=== PATIENT | male | born 1950 | race Caucasian/White ===

== ENCOUNTER 2019-03-09 09:21 | Day surgery (SDC) | payer BC ==
[~2019-03-09 09:21] MED LIST: Lactated Ringers 1,000 ML IV SCH; Sodium Chloride 0.9% 10 ML Syringe FLUSH PRN
[2019-03-09] MEDS ORDERED: Midazolam 1 MG/ML 2 ML SDV ONE (10:43)
[2019-03-09] MEDS ORDERED: Propofol 200 MG/20 ML SDV ONE (10:43)
[2019-03-09] MEDS ORDERED: fentaNYL 100 MCG/2 ML SDV ONE (10:43)
--- NOTE | 2019-03-09 12:16 | OR ---
PREOPERATIVE DIAGNOSIS: History of polyps and colitis. POSTOPERATIVE DIAGNOSES: 1. Colonic polyps x2 removed. 2. Diffuse mild colitis. PROCEDURE PROPOSED: Total flexible colonoscopy. PROCEDURE DONE: Total flexible colonoscopy with hot snare polypectomy x2 and multiple random biopsies. INDICATION: This is a 68-year-old gentleman with a history of polyps and a history of some type of colitis in the past. He does vacillate between diarrhea and constipation. As far as his stool pattern, it is felt he should be colonoscoped for further evaluation with some biopsies and to rule out any recurrent polyps. TECHNIQUE: The patient was brought to the endoscopy suite, placed in left lateral decubitus position. He was sedated per STAFF ATTORNEY with propofol. The flexible video colonoscope was then passed transanally and under visualization advanced to the cecum. In the cecal area, he was found to have an adenomatous polyp removed by hot snare technique and retrieved with suction. I then started doing random biopsies throughout the cecal, ascending, transverse, descending, sigmoid, and rectal colon. He was noted to have visible colitis, mild, mainly in the right colon, but it was noted also in the descending colon as well. I then found a second polyp at 20 cm from the anal verge, again removed by hot snare technique and retrieved with suction and the remainder of the rectosigmoid was normal. The scope was then withdrawn. The patient tolerated the procedure well. FINAL IMPRESSION: 1. Diffuse colitis, biopsies pending. 2. Colonic polyps x2 removed. PLAN: He will be sent a letter with pathology report. I felt that he should follow up with Dr. Arelis Brody next week for pathology report and recheck and see if there is anything further needs to be done and he should have a 5 year followup exam of his colon to make sure he has not formed any new polyps. SCM: 03/09/2019 11:50:25 MODL: 03/09/2019 12:08:12 /[id number]
== END 2019-03-09 12:35 | disposition home or self-care (01) ==
LOC: VM.SDS 09:21
PROVIDERS: ATTEND Surgery
DX: R19.4 Change in bowel habit (principal); D12.0 Benign neoplasm of cecum; D12.5 Benign neoplasm of sigmoid colon; K52.9 Noninfective gastroenteritis and colitis, unspecified; Z86.010 Personal history of colon polyps; I10 Essential (primary) hypertension; E78.00 Pure hypercholesterolemia, unspecified; I73.9 Peripheral vascular disease, unspecified; I71.4 Abdominal aortic aneurysm, without rupture; F17.210 Nicotine dependence, cigarettes, uncomplicated; Z87.19 Personal history of other diseases of the digestive system; Z79.82 Long term (current) use of aspirin; Z79.899 Other long term (current) drug therapy
CPT/HCPCS: 45385; J2250; J2704; J3010; J7120

== ENCOUNTER 2021-01-30 10:56 | Emergency (ER) | payer OTHER ==
[2021-01-30] MEDS ORDERED: Heparin Sodium 5,000 Units/ML Vial ONE (11:05)
[2021-01-30] MEDS ORDERED: Ticagrelor 90 MG Tab PO ONE (11:05)
[2021-01-30] MEDS ORDERED: Morphine 2 MG/ML SYRINGE ONE (11:05)
[2021-01-30] MEDS ORDERED: Nitroglycerin 0.4 MG Tab.SL ONE (11:05)
[2021-01-30] MEDS ORDERED: Aspirin 81 MG Tab.Chew ONE (11:05)
[2021-01-30] MEDS ORDERED: Morphine 2 MG/ML SYRINGE IVPUSH ONE (11:05)
[2021-01-30] MEDS ORDERED: Nitroglycerin/D5W (0.1 MG/ML) 25 MG/250 ML Bottle ONE (11:05)
--- NOTE | 2021-01-30 11:10 | EDM.PDOC ---
ED HPI GENERAL MEDICAL PROBLEM - General Stated Complaint: ER Time Seen by Provider: 01/30/21 10:56 Source of Information: Reports: Patient, RN, RN Notes Reviewed History Limitations: Reports: No Limitations - History of Present Illness Onset: Today, Sudden - Related Data Allergies Allergy/AdvReac Type Severity Reaction Status Date / Time No Known Allergies Allergy Verified 03/09/19 09:41 Home Meds: Home Meds Betamethasone Dipropionate [Betamethasone Diprop Augmented] 1 applic TOP BID PRN 03/06/19 [History] amLODIPine Besylate [Amlodipine Besylate] 5 mg PO DAILY 03/06/19 [History] Past Medical History HEENT History: Reports: Hard of Hearing Cardiovascular History: Reports: High Cholesterol, Hypertension Other Cardiovascular History: PERIPHERAL VASCULAR DISEASE. AAA(ABDOMINAL AORTIC ANEURYSM) ([facility]). OCCLUSION OF ILIAC ARTERY Gastrointestinal History: Reports: Colon Polyp Other Gastrointestinal History: ULCERATIVE COLITIS Other Genitourinary History: PROSTATIC HYPERTROPHY. URGENCY OF URINATION Musculoskeletal History: Reports: Back Pain, Chronic, Neck Pain, Chronic Other Musculoskeletal History: HAMMER TOE. TRAUMATIC FINGER AMPUTATION. METATRSALGIA OF LEFT FOOT. CARPEL TUNNEL SYNDROME Other Psychiatric History: PAIN MEDICATION AGREEMENT BROKEN. SMOKER. H/O ALCO HOL ABUSE Other Dermatologic History: PLANTAR WART LEFT FOOT - Past Surgical History Other Cardiovascular Surgeries/Procedures: AORTAL-FEMORAL BYPASS GI Surgical History: Reports: Colonoscopy Other Musculoskeletal Surgeries/Procedures:: BACK SURGERY x 3. NECK SURGERY. LAMINECTOMY ED ROS GENERAL - Review of Systems Review Of Systems: Comprehensive ROS is negative, except as noted in HPI. ED EXAM, GENERAL - Physical Exam Exam: See Below Exam Limited By: No Limitations General Appearance: Alert, WD/WN, Anxious, Moderate Distress Eye Exam: Bilateral Eye: EOMI, Normal Inspection Ears: Normal External Exam, Hearing Grossly Normal Nose: Normal Inspection Throat/Mouth: Normal Inspection, Normal Voice, No Airway Compromise Head: Atraumatic, Normocephalic Neck: Normal Inspection, Supple, Non-Tender, Full Range of Motion Respiratory/Chest: No Respiratory Distress, Lungs Clear, Normal Breath Sounds, No Accessory Muscle Use, Chest Non-Tender Cardiovascular: Normal Peripheral Pulses, Regular Rate, Rhythm, No Edema, No Gallop, No JVD, No Murmur, No Rub Peripheral Pulses: 2+: Radial (L), Radial (R) GI/Abdominal: Normal Bowel Sounds, Soft, Non-Tender (Male) Exam: Deferred Rectal (Males) Exam: Deferred Back Exam: Normal Inspection, Full Range of Motion, NT Extremities: Normal Inspection, Normal Range of Motion, Non-Tender, Normal Capillary Refill, No Pedal Edema Neurological: Alert, Oriented, CN II-XII Intact, Normal Cognition, Normal Gait, Normal Reflexes, No Motor/Sensory Deficits Psychiatric: Normal Affect, Normal Mood, Anxious Skin Exam: Warm, Dry, Intact, Normal Color, No Rash Lymphatic: No Adenopathy #1 Interpretation EKG Date: 01/30/21 Time: 10:54 Rhythm: NSR Rate (Beats/Min): 87 P-Wave: Present QRS: Wide ST-T: Elevated QT: Normal Course - Orders/Labs/Meds Orders: Active Orders 24 hr Category Date Time Status EKG Documentation Completion [RC] STAT Care 01/30/21 11:05 Active Chest 1V Frontal [CR] Stat Exams 01/30/21 11:05 Ordered Labs: Laboratory Tests 01/30/21 01/30/21 01/30/21 Range/Units 11:00 11:00 11:00 WBC 10.3 H (4.0-10.0) x10^3/uL RBC 5.39 (4.5-6.0) x10^6/uL Hgb 17.5 (14.0-18.0) g/dL Hct 51.5 (40.0-52.0) % MCV 95.5 H (78.0-93.0) fL MCH 32.5 H (26.0-32.0) pg MCHC 34.0 (32.0-36.0) g/dL RDW Coeff of Danielle 13.7 (10.0-15.0) % Plt Count 188 (130-400) x10^3/uL Neut % (Auto) 56.9 (50.0-80.0) % Lymph % (Auto) 32.9 (25.0-50.0) % Mower % (Auto) 8.8 (2.0-11.0) % Eos % (Auto) 1.2 (0.0-4.0) % Baso % (Auto) 0.2 (0.2-1.2) % PT 10.4 (9.9-12.5) SEC INR 0.9 L (2.0-3.5) APTT 26.1 (25.6-32.8) SEC D-Dimer, Quantitative 3.35 H (<=0.58) mg/LFEU Sodium 139 (136-145) mmol/L Potassium 4.1 (3.5-5.1) mmol/L Chloride 101 (98-107) mmol/L Carbon Dioxide 26 (21-32) mmol/L Anion Gap 16.1 H (5-15) mmol/L BUN 23 H (7-18) mg/dL Creatinine 1.5 H (0.70-1.30) mg/dL Est Cr Clr Drug Dosing TNP Estimated GFR (MDRD) 46 Glucose 143 H (70-99) mg/dL Calcium 9.3 (8.5-10.1) mg/dL Corrected Calcium 9.46 (8.5-10.1) mg/dL Magnesium 2.0 (1.8-2.4) mg/dL Total Bilirubin 0.7 (0.2-1.0) mg/dL AST 84 H (15-37) U/L ALT 46 (16-63) U/L Alkaline Phosphatase 97 (46-116) U/L Creatine Kinase 262 (39-308) U/L Troponin I High Sens 2375 H* (<=76) ng/L Total Protein 8.2 (6.4-8.2) g/dL Albumin 3.8 (3.4-5.0) g/dL Globulin 4.4 Albumin/Globulin Ratio 0.86 Meds: Medications Discontinued Medications Generic Name Dose Route Start Last Admin Trade Name Freq PRN Reason Stop Dose Admin Morphine Sulfate 2 mg 01/30/21 11:05 Morphine 2 Mg/Ml Syringe IVPUSH 01/30/21 11:06 ONETIME ONE - Re-Assessments/Exams Free Text/Narrative Re-Assessment/Exam: 01/30/21 12:07 Discuss[address] patient case with Dr. Manuel, Cardiology at [facility] in [place]. He accepted the patient for transfer to [place], and the patient will go directly to [facility]. Departure - Departure Time of Disposition: 11:15 Disposition: DC/Tfer to Acute Hospital 02 Reason for Transfer *Q: Other Condition: Fair Clinical Impression: STEMI (ST elevation myocardial infarction) Qualifiers: Involved coronary artery: unspecified coronary artery Qualified Code(s): I21.3 - ST elevation (STEMI) myocardial infarction of unspecified site Referrals: Arelis Brody MD [Primary Care Provider] - Forms: Interfacility Transfer EMTALA - My Orders Last 24 Hours: My Active Orders 01/30/21 11:05 EKG Documentation Completion [RC] STAT Chest 1V Frontal [CR] Stat - Assessment/Plan Last 24 Hours: My Active Orders 01/30/21 11:05 EKG Documentation Completion [RC] STAT Chest 1V Frontal [CR] Stat
[2021-01-30 11:33] LABS: PTT,PARTIAL THROMBOPLSTIN TIME 26.1 SEC (25.6-32.8)
[2021-01-30 11:45] LABS: ANION GAP 16.1 mmol/L (5-15); CHLORIDE,CL 101 mmol/L (98-107); SODIUM,NA 139 mmol/L (136-145)
--- OUTSIDE RECORDS SUMMARY | 2021-02-03 07:52 | XMSREPORT ---
:1950 Author Organization [facility] s Address [address] [place] [address] Care Team Providers Name Role Phone MD Ronn Primary Care Provider MD Ronn Attributed Provider Reason for Referral Comprehensive Primary Care Plus (Routine) Status Reason Specialty Diagnoses / Referred By Referred To Procedures Contact Contact New Request CARDIOLOGY Diagnoses Stented coronary artery ST elevation myocardial infarction involving left anterior descending (LAD) coronary artery ([facility]) Coy Hartman o Cardiology Sc A, [employer] [address] [place] [address] [phone] Phone: Fax: Reason for Visit Auth/Cert Status Reason Specialty Diagnoses / Procedures Referred By C ontact Referred To Contact Encounter Details Date Type Department Care Team Description 01/30/2021 - Hospital Encounter [facility] ST elevation [place] 02/02/2021 CENTER 6CArlene Grimm MD (STEMI) ([facility]) [id number] [place] [address] [place] [address] [phone] Allergies No Known Allergiesdocumented as of this encounter (statuses as of 02/02/2021) Medications Medication Sig Dispensed Refills Start End Date Status Date PROAIR HFA 108 INHALE 1-2 PUFFS 8.5 g 2 Active (90 Base) MCG/ACT ORALLY EVERY 4 9 inhalerIndication HOURS NEEDED s: Cough, Lower FOR SHORTNESS OF respiratory BREATH OR infection (e.g., WHEEZING SHAKE bronchitis, WELL BEFORE pneumonia, USING. pneumonitis, pulmonitis) loratadine Take 10 mg by 0 Activ e (CLARITIN) 10 mg mouth 1 time per tablet day selenium 200 MCG Take 200 mcg by 0 Active CAPS mouth 1 time per day fluticasone-umecl Inhale 1 puff 2 each 4 Active idinium-vilantero orally 1 time 1 l (TRELEGY per day ELLIPTA) 100-62.5-25 mcg/Inh inhalerIndication s: Restrictive lung disease vitamin D3, Take 50 mcg by 0 Act ranjana cholecalciferol, mouth 1 time per 50 mcg (1999 day unit) tablet omega-3 fatty Take 1,000 mg by 0 Active acids (FISH OIL) mouth 1 time per 1000 mg capsule day aspirin (ECOTRIN Take 1 tablet 30 tablet 0 Active LOW STRENGTH) 81 (81 mg) by mouth 1 MG enteric coated 1 time per day tabletIndications : ST elevation myocardial infarction involving left anterior descending (LAD) coronary artery (HCC) nitroglycerin Dissolve 1 25 tablet 1 02/08/20 Activ e (NITROSTAT) 0.4 tablet (0.4 mg) 1 22 mg sublingual under the tongue tabletIndications every 5 minutes : ST elevation as needed for myocardial chest pain. January infarction repeat every 5 involving left minutes for a anterior total of 3 descending (LAD) doses. coronary artery (HCC) amiodarone Take 1 tablet 90 tablet 4 02/21/20 Activ e (CORDARONE, (200 mg) by 1 22 PACERONE) 200 mg mouth 1 time per tabletIndications day <start : ST elevation taking on January myocardial > infarction involving left anterior descending (LAD) coronary artery (HCC) amiodarone Take 1 tablet 12 tablet 0 02/09/20 Activ e (CORDARONE, (400 mg) by 1 22 PACERONE) 400 mg mouth 1 time per tabletIndications day thru the : ST elevation 14 of February. myocardial infarction involving left anterior descending (LAD) coronary artery (HCC) rosuvastatin Take 1 tablet 90 tablet 4 02/09/20 Act ranjana (CRESTOR) 40 mg (40 mg) by mouth 1 22 tabletIndications 1 time per day : ST elevation myocardial infarction involving left anterior descending (LAD) coronary artery ([facility]) carVEDilol Take 1 tablet 180 tablet 4 02/08/20 Acti ve (COREG) 6.25 mg (6.25 mg) by 1 22 tabletIndications mouth 2 times a : ST elevation day with meals myocardial infarction involving left anterior descending (LAD) coronary artery ([facility]), Acute systolic CHF (congestive heart failure) ([facility]) clopidogrel Take 1 tablet 90 tablet 3 Acti ve (PLAVIX) 75 mg (75 mg) by mouth 1 tabletIndications 1 time per day : ST elevation myocardial infarction involving left anterior descending (LAD) coronary artery ([facility]) apixaban Take 1 tablet (5 180 tablet 4 02/08/20 Ac tive (ELIQUIS) 5 MG mg) by mouth 2 1 22 tabletIndications times a day. : Atrial Fibrillation aspirin 81 mg Take 81 mg by 30 tablet 0 02/03/20 Di scontinued enteric coated mouth Every 3 9 21 ( Stop Taking at tablet days Discharge) betamethasone APPLY TWICE 50 g 4 01/31/20 Disc ontinued dipropionate DAILY TO 9 (Data e ntry (DIPROLENE) 0.05 AFFECTED SKIN error) % GELIndications: FOR UP TO 2 Seborrheic WEEKS dermatitis losartan 25 mg TAKE 1 TABLET 90 tablet 3 02/03/20 D iscontinued tabletIndications (25 MG) BY MOUTH 0 21 (Stop Taking at : Essential 1 TIME PER DAY Dis charge) hypertension, benign diclofenac Apply 2 g 0 02/03/20 Discontin ued (VOLTAREN) 1 % topically 4 21 (St op Taking at gel times a day as Disch arge) needed for mild pain ibuprofen Take 200-600 mg 0 02/03/20 Disc ontinued (ADVIL;MOTRIN-IB) by mouth every 4 21 (Stop Taking at 200 mg tablet to 6 hours as Di scharge) needed for mild pain apixaban Take 1 tablet (5 180 tablet 4 02/03/20 Di scontinued (ELIQUIS) 5 MG mg) by mouth 2 1 21 (Stop Taking at tabletIndications times a day Discharge) : Atrial Indications: Fibrillation Atrial Fibrillation documented as of this encounter (statuses as of 02/02/2021) Active Problems Problem Noted Date Acute systolic CHF (congestive heart failure) 02/03/20 21 Atrial fibrillation with tachycardic ventricular rate 02/02/2021 ST elevation [place] (STEMI) 01/30/2021 STEMI (ST elevation myocardial infarction) 01/30/2021 Bilateral arm pain 01/12/2021 Obesity with body mass index of 30.0-39.9 12/22/2020 H/O aorto-femoral bypass 01/29/2020 Neurogenic claudication 01/29/2020 Last Assessment & Plan: Dr. Whitaker discussed with the patient t hat his symptoms of lower extremities are likely related to his significant degene rative spine disease and significant hardware from previous surgeries in lower back. Dutsin andino has recommended that the patient be re-evaluated in neurosurgery for any pot ential interventions that may improve his symptoms. The patient agrees. His last n eurosurgery visit was in 2011 at [facility], 3 months post op after most recent discect mila and lumbar fusion. He would like to be seen in neurosurgery at [facility] and we w ill make this referral for him. Essential hypertension 05/05/2018 Occlusion of iliac artery 03/09/2015 Overview: See peripheral artery disease AAA (abdominal aortic aneurysm) 03/04/2015 Overview: Aorta US 03/03/15 about 3 cm infrarenal AAA, asymptomatic. CT scan 04/05/16 maximal diameter 3.[address] scan 05/03/2017 maximal diameter 3.[address] scan 05/11/19 shows slight interval in crease in size up to 3.7 cm maximal diameter, previously 3.4 cm, with slight increase in mural thrombus. 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 Last Assessment & Plan: Last CT scan done in April 2019. Recheck in 2 years in 2020. Pain medication agreement broken 03/26/2013 Overview: Overview: VIOLATED PAIN CONTRACT 03/14/13. Status post laminectomy 07/16/2012 Chronic cervical pain 05/29/2012 Carpal tunnel syndrome 10/27/2009 Pure hypercholesterolemia 06/24/2009 Chronic back pain Overview: Lumbar laminectomy '72, 09/09, 09/06, poor result, disabled (see 07/29/13 scan p 4, 92 of 118) Cervical laminectomy, fusion for R ce rvical radiculopathy (see 07/29/13 scan p 14/118) Certified disabled by Soc Sec since 1 On opioids p.r.n., does not take ever y day Smoker Overview: Says he finally quit 08/12; no Dx of lung disease, needs spirometry; restarted 2/3 ppd Quit 03/14 after bypass surgery R leg; see also AAA 04/13 BPA note that he qualifies for low-dose lung CT for cancer screening annually until age 72, talk to him about it at his exam 04/14 Resumed smoking although states not a s much (07/2015) Last Assessment & Plan: Again discussed importance of smoking cessation today, he is going to try to cut back starting tomorrow. He refuses any treatment options to help with cessation. Prostatic hypertrophy Overview: 09/11 1+ on MAMI; urgency, frequency but bladder scan normal, 10 mL PSA 09/11 pending Plantar wart, left foot Overview: L 3rd metatarsal head 09/11, see also metatarsalgia Peripheral vascular disease with claudication Overview: 09/11 R leg especially, poor pp, Hx low JORGE ALBERTO at , can't remember value; no skin lesions. See former smoker 02/11 pain at rest in R leg 03/14 Aorta to right common femoral ar kwaku bypass with 8 mm Fontana-Miguel graft, Dr. Guaman; good result 03/14 preop Lexiscan cardiolite showed no perfusion defects, but postop had atrial fib, Rx metoprolol 4 weeks. Last Assessment & Plan: The patient was also seen today by Dr. Whitaker. We reviewed results of JORGE ALBERTO testing, advising patient that they remain stable, unchanged from previous study 4 months ago. They are normal on right side an d with significant decompensation on lef t side, consistent with known chronic left SFA / popliteal occlusion. Patient is unable to walk long distances without stopping to rest due to bilateral leg numb ness which onsets at 2 blocks, or sooner on an incline. He is advised that he has probably developed adequate collateral circulation to avoid claudication due to his blood vessels. No vascular interven tion is likely to be beneficial and not recommended, given bilateral symptoms which are more consistent with neurogenic claudication. He is encouraged to continue walking as he is able and to contact us if symptoms change. Otherwise we will s ee back to recheck ABIs in about 9 months. Patient communicated understanding of pl an and education received. H/O ulcerative colitis Overview: Flex Sig, Tiffany, Bx's consistent with ulcerative colitis or at least proctitis, Rx Rowasa, azulfadine Referred self to [facility], they di d colonoscopy, Rx something; no problem since Adenomatous colon polyp Overview: 06/11 Colonoscopy: serrated adenoma; n ext in 5 yr, 06/16 Aureliano Overview: 09/11 Most of his toes, but don't seem to bother him See also peripheral vascular disease H/O alcohol abuse Overview: Essentially quit drinking approx 11/07 Finger amputation, traumatic Overview: 04/06 L index finger, in work injury, at mid-proximal phalanx Metatarsalgia of left foot Overview: Says 09/11 has tried metatarsal pads before, didn't help; podiatry referral Urgency of urination Overview: See also prostatic hypertrophy Frequency worse in a.m.'s 09/11 Declines any Rx for it Hx of laminectomy Overview: Lumbar laminectomy , 09/06, 09/09 Cervical laminectomy 11/07 See chronic back pain Wears partial dentures Overview: Hx traumatic loss of upper front teet h, wears partial denture Hearing loss Overview: Mild; no cerumen 03/14 documented as of this encounter (statuses as of 02/02/2021) Immunizations Name Administration Dates Next Due FLU VACCINE HIGH DOSE 65YR+(Fluzone) 07/03/2019, 07/03/2019 Pneumococcal Conj PCV13 07/31/2019 Pneumococcal Polysaccharide PPSV23 03/15/2014 Zoster Live(Zostavax) 03/15/2014 documented as of this encounter Social History Tobacco Use Types Packs/Day Years Used Date Current Every Day Smoker Cigarettes 0.5 60 Sta rted: 07/17/1960 Smokeless Tobacco: Never Used Comments: smokes less than 0.5 per pack per day Alcohol Use Drinks/Week oz/Week Comments No Transportation Needs Answer Date Recorded In the past 12 months, has lack of transportation kept you f rom No 02/01/2021 medical appointments or from getting medications? In the past 12 months, has lack of transportation kept you f rom No 02/01/2021 meetings, work, or getting things needed for daily living? Sexually Active Control Partners Comments Yes Female Sex Assigned at Date Recorded Not on file documented as of this encounter Last Filed Vital Signs Vital Sign Reading Time Taken Comments Blood Pressure 106/74 02/02/2021 12:04 PM CDT Pulse 65 02/02/2021 12:04 PM CDT Temperature 36.7 C (98 F) 02/02/2021 12:04 PM CDT Respiratory Rate 16 02/02/2021 12:04 PM CDT Oxygen Saturation 93% 02/02/2021 12:04 PM CDT Inhaled Oxygen Concentration - - Weight 98.4 kg (216 lb 14.9 oz) 02/01/2021 7:00 PM CDT Height 172.7 cm (5' 8") 02/01/2021 7:00 PM CDT Body Mass Index 32.98 02/01/2021 7:00 PM CDT documented in this encounter Functional Status Functional Status Response Date of Assessment Is the person deaf or does he/she have serious difficulty No 03/08/2015 hearing? Is this person blind or does he/she have difficulty No 03/08/2015 seeing even when wearing glasses? Do you have difficulty with walking, balance, climbing Yes 06/08/2020 stairs, or had a fall in the last 3 months? Does the patient have difficulty dressing or bathing? No 03/08/2015 Because of a physical, mental, or emotional condition; No 03/08/2015 does this person have difficulty doing errands alone such as visiting a doctor's office or shopping? Cognitive Status Response Date of Assessment Because of a physical, mental, or emotional condition; No 03/08/2015 does this person have serious difficulty concentrating, remembering, or making decisions? documented as of this encounter Discharge Summaries Not on filedocumented in this encounter Discharge Instructions Coy Lopez CNP - 1Radial Cardiac Cath/Angioplasty Discharge Instructions ? Do not subject your hand/or arm to any forceful movements for 24 hours. This would include thingslike supporting your weight when rising from a chair or bed. ? For two days following discharge: o Do not operate a motor vehicle, tractor, lawnmower, motorcycle or all terrain vehicles. o Do not life anything heavier than one pound with affected arm. o Avoid a lot of wrist movement (extension/flexion). ? Avoid lifting heavy items with your affected arm for three days after your discharge. ? Do not take part in brisk exercise (i.e. Tennis) using your affected arm for five days after your discharge. ? If bleeding should occur while in the hospital, apply firm pressure to the site and call your nurse. ? If bleeding should occur after your discharge: o Sit down and apply firm pressure to site with your fingers for 10 minutes. o If the bleeding stops, continue to sit quietly, keeping your wrist straight for two hours. Call your doctor as soon as possible o If bleeding does not stop after 10 minutes or if there is a large amount of bleeding or spurting, call 911 right away. [address] not drive yourself to the hospital. ? Remove band-aid 24 hours following application. ? You may shower on the day following your procedure. Do not take a tub bath for three days after your discharge. ? Expect mild tingling of hand and tenderness at the puncture site for up to three days. If this persists or other symptoms develop, please call your nurse or doctor. AttachmentsThe following attachments cannot be sent through Care Everywhere. Heart Failure- After Your Hospital Stay ([place])Heart Attack, Discharge Instructions for ([place])Atrial Fibrillation, Discharge Instructions for ([place])Eliquis Oral Tablet 5 mg ([place])Plavix Oral Tablet 75 mg ([place]) Nitroglycerin SL Oral Tablet 0.4 mg ([place])documented in this encounter Medications at Time of Discharge Medication Sig Dispensed Refills Start Date End Date aspirin (ECOTRIN LOW Take 1 tablet (81 30 tablet 0 02/04/20 21 STRENGTH) 81 MG enteric mg) by mouth 1 time coated per day tabletIndications: ST elevation myocardial infarction involving left anterior descending (LAD) coronary artery (HCC) nitroglycerin Dissolve 1 tablet 25 tablet 1 02/02/202101/28 (NITROSTAT) 0.4 mg (0.4 mg) under the sublingual tongue every 5 tabletIndications: ST minutes as needed elevation myocardial for chest pain. May infarction involving repeat every 5 left anterior descending minutes for a total (LAD) coronary artery of 3 doses. (HCC) amiodarone (CORDARONE, Take 1 tablet (200 90 tablet 4 02/1502/20/2022 PACERONE) 200 mg mg) by mouth 1 time tabletIndications: ST per day <start elevation myocardial taking on February 15> infarction involving left anterior descending (LAD) coronary artery ([facility]) amiodarone (CORDARONE, Take 1 tablet (400 12 tablet 0 02/0302/08/2022 PACERONE) 400 mg mg) by mouth 1 time tabletIndications: ST per day thru the elevation myocardial 14 of February. infarction involving left anterior descending (LAD) coronary artery ([facility]) rosuvastatin (CRESTOR) Take 1 tablet (40 90 tablet 4 202002/08/2022 40 mg tabletIndications: mg) by mouth [address] elevation myocardial per day infarction involving left anterior descending (LAD) coronary artery ([facility]) carVEDilol (COREG) 6.25 Take 1 tablet (6.25 180 tablet 4 02/202102/07/2022 mg tabletIndications: ST mg) by mouth 2 times elevation myocardial a day with meals infarction involving left anterior descending (LAD) coronary artery ([facility]), Acute systolic CHF (congestive heart failure) ([facility]) clopidogrel (PLAVIX) 75 Take 1 tablet (75 90 tablet 3 02/03 mg tabletIndications: ST mg) by mouth 1 time elevation myocardial per day infarction involving left anterior descending (LAD) coronary artery ([facility]) vitamin D3, Take 50 mcg by mouth 0 cholecalciferol, 50 mcg 1 time per day (2000 unit) tablet omega-3 fatty acids Take 1,000 mg by 0 (FISH OIL) 1000 mg mouth 1 time per day capsule fluticasone-umeclidinium Inhale 1 puff orally 2 each 4 0 10/21/2020 -vilanterol (TRELEGY 1 time per day ELLIPTA) 100-62.5-25 mcg/Inh inhalerIndications: Restrictive lung disease selenium 200 MCG CAPS Take 200 mcg by 0 mouth 1 time per day loratadine (CLARITIN) 10 Take 10 mg by mouth 0 mg tablet 1 time per day PROAIR HFA 108 (90 Base) INHALE 1-2 PUFFS 8.5 g 2 05/25 MCG/ACT ORALLY EVERY 4 HOURS inhalerIndications: NEEDED FOR Cough, Lower respiratory SHORTNESS OF BREATH infection (e.g., OR WHEEZING SHAKE bronchitis, pneumonia, WELL BEFORE USING. pneumonitis, pulmonitis) apixaban (ELIQUIS) 5 MG Take 1 tablet (5 mg) 180 tablet 4 02/07/2022 tabletIndications: by mouth 2 times a Atrial Fibrillation day. documented as of this encounter Progress Notes Hamlet Erazo, MED STUDENT - 02/01/2021 1:05 PM CDT Hospital Progress Note Jorje Batista is a 70yr old male admitted on 01/30/2021. Assessment / Plan # STEMI s/p PCI with LUKE on 01/30 # Hypertension # Hyperlipidemia # Tobacco Use Disorder # Provoked A-Fib, converted to sinus on amio drip - C 90% proximal LAD s/p PCI with 3.5 x 18 LUKE, post dilated with 4.0 balloon in the proximal segment. He did convert to afib during cath procedure and converted out with Amio drip within a few hours. -History of a single episode of afib in the past, also a provoked episode - ECHO EF 25%, grade 2 diastolic dysfunction, global hypokinesis with sparing of the basal segments,trivial mitral regurgitation, trivial tricuspid regurgitation - Could consider LifeVest due to acute VT with EF decreased to 25% from 55% prior, at this time patient is not interested Converted to A-Fib at 0220 of 02/01 and converted back to sinus at 0950 of 02/01. With this in mind, wewill discontinue the Brilinta and start Plavix with Eliquis for anticoagulation. Also will continuecoreg and oral amiodarone Plan: -Consider losartan tomorrow -Continue Aspirin 81 mg -Continue Coreg 6.25 mg twice daily -Start Plavix 300 mg one time dose today, and 75 mg tomorrow -Continue Crestor 40 mg daily -Discontinue Brilinta -Begin Eliquis 5 mg twice daily -Oral amiodarone 400 mg daily for two weeks, then move to 200 mg daily -Continue tele -Potential discharge tomorrow AM -Follow up with cardiology outpatient on discharge Interval History: He is feeling well, but did convert into A fib overnight at 0220 with rates 110- 130. Amio bolus andgtt were given. He denied noticing any changes that alerted him to being in A fib. He denies chestpain, SOB, leg swelling or palpitations. He does have some cough which he attributes to his past smoking history. He converted to normal sinus at 0950 with rates in the 70-80s. Amiodarone gtt was discontinued and oral amiodarone started. HPI / History / ROS Patient is a 70 year old male with a history of AAA, HTN, aorto-femoral bypass, obesity, PVD, HLD, smoking, who presented from [facility] to back pain and racing heart. He was found to have STEMI and was transferred to [facility]. He was fishing on Saturday and upon returning home had pizza for dinner. Around an hour later, he began having chest pain across the shoulder blades in addition to a racing heart. He felt shaky at this time. These symptoms resolved on their own. Saturday he missed his blood pressure medication. On Saturday, he experienced the pain across the shoulder blades again. At this point he presented to the [facility] and received nitro and ASA. This improved his pain slightly. Further workup revealeda STEMI, at which point he was transferred. At [facility] he was taken to the livestock laborer and found to have 90% proximal LAD and received PCI with 3.5 x 18 LUKE, post dilated with 4.0 balloon in the proximal segment. He was started on Brilinta. During the procedure, he did convert into A Fib. Review of Systems Constitutional: Negative for chills, fatigue and fever. HENT: Negative for ear pain and hearing loss. Eyes: Negative for pain and visual disturbance. Respiratory: Positive for cough. Negative for shortness of breath and wheezing. Cardiovascular: Negative for chest pain, palpitations and leg swelling. Gastrointestinal: Negative for abdominal pain, constipation, diarrhea, nausea and vomiting. Genitourinary: Negative for difficulty urinating, dysuria, frequency and urgency. Musculoskeletal: Negative for arthralgias and myalgias. Skin: Negative. Neurological: Negative for dizziness, syncope, light-headedness and headaches. Hematological: Does not bruise/bleed easily. Psychiatric/Behavioral: Negative. Physical / Results Current Vital Signs Temp: 97.8 F (36.6 C) BP: 86/65 Weight: 98.4 kg (216 lb 14.9 oz) SpO2: 96 % Resp: 16 Pulse: 61 O2 Device: Room Air O2 Flow Rate (L/min): 2 l/min Pain Ratin Physical Exam Constitutional: General: He is not in acute distress. Appearance: Normal appearance. He is not ill-appearing. HENT: Head: Normocephalic. Right Ear: External ear normal. Left Ear: External ear normal. Neck: Musculoskeletal: Normal range of motion. Cardiovascular: Rate and Rhythm: Normal rate and regular rhythm. Pulses: Normal pulses. Heart sounds: Normal heart sounds. No murmur. Pulmonary: Effort: Pulmonary effort is normal. No respiratory distress. Breath sounds: Wheezing present. Comments: Expiratory wheezing bilaterally Abdominal: General: Abdomen is flat. Bowel sounds are normal. There is no distension. Palpations: Abdomen is soft. Tenderness: There is no abdominal tenderness. There is no guarding. Skin: General: Skin is warm and dry. Neurological: General: No focal deficit present. Mental Status: He is alert. Psychiatric: Mood and Affect: Mood normal. Behavior: Behavior normal. WAVEFORM Atrial flutter with 2:1 A-V conduction Intraventricular conduction delay T wave abnormality, consider inferior ischemia Abnormal ECG Ventricular Rate: 135 BPM Atrial Rate: 270 BPM QRS Duration: 130 ms Q-T Interval: 354 ms QTc Calculation(Bazett): 531 ms Calculated R [place]: 53 degrees Calculated T [place]: 48 degrees Diagnostic Talent Recruiter: ISAURA CERDA MD Medical Equipment Sales: ISAURA CERDA MD Indication: Angina/VT: myocardial infarction with ST elevation (STEMI). Interventional Conclusions: Interventional Summary Proximal left anterior descending: A successful Drug Eluting Stent was deployed using a RESOLUTE DANIELLE [id number]. EXAM: XRAY CHEST PORTABLE INDICATION:wheezing, SOB COMPARISON(S): Chest x-ray from 05/05/2019 FINDINGS/IMPRESSION: The cardiac silhouette is in the upper limits of normal in size. There is pulmonary vascular congestion as well as interstitial and hazy groundglass opacities in the lungs concerning for pulmonary edema. Diffuse infectious process can appear similar. No lobar consolidation identified. No effusion or pn eumothorax. Finalized by: Agustin Olivas MD on 01/31/2021 8:18 AM CDT Editor Continuity And Script: BILLIE LONGO RDCS Reading Physician: PALLAVI VERA MD Ordering Physician: COY HARTMAN CNP Procedure Indication(s): Post STEMI Examination: TTE Complete 2D(m-mode), Complete Spectral Doppler, Color Doppler Conclusions Left Ventricle: Markedly reduced left ventricular systolic function. The ejection fraction is visually estimated to be 25 %. Grade 2 left ventricular diastolic dysfunction. A false tendon is present. Right Ventricle: Normal right ventricular systolic function. IVC: Dilated IVC with normal respirophasic changes. Pericardium: No significant pericardial effusion. No functionally significant valvular abnormalities. Comparison Study Comparison Date: 03/14/2015 Comparison Study: Transthoracic Echocardiogram New RWMA's noted on today's exam, LV overall function has decreased from 55% [place] Erazo, MS3 February 01lectronically signed by Marko Brantley MD at 02/02/2021 8:01 AM CDT Associated attestation - Marko Brantley MD - 02/02/2021 8:01 AM CDT I discussed the patient with the medical student and was present while the history of present illness was obtained. I personally performed the physical exam and medical decision-making components of the visit and have reviewed and verify the student's documentationCoy Hartman CNP - 01/31/2021 11:10 AM CDT Cardiology Progress Note Patient Name: Jorje Batista Admit Date: 01/30/2021 CSN: [id number] Assessment and Plan Active Problems: ST elevation VT (STEMI) (HCC) STEMI (ST elevation myocardial infarction) (HCC) Resolved Problems: * No resolved hospital problems. * Pt was interviewed/examined and the following plan was developed in conjunction with Dr. Brantley Impression/Plan: Jorje is a 70 year old male with a history of AAA, HTN, aorto-femoral bypass, obesity, PVD, HLD, smoking, who presented from [facility] to back pain and racing heart. He was found to have STEMI so was transferred to [facility]. # STEMI # HTN # HLD # Tobacco Use # Provoked Afib, converted to sinus on amio drip - LHC 90% proximal LAD s/p PCI with 3.5 x 18 LUKE, post dilated with 4.0 balloon in the proximal segment. He was started on brilinta. - Patient did convert to afib during cath procedure and converted out with Amio drip within a few hours. He does have a history of a single episode of afib in the past, also a provoked episode. Will hold off on anticoagulation at this time, if he has unprovoked episode we would consider anticoagulation. Currently sinus 70s. - ECHO EF 25%, grade 2 diastolic dysfunction, global hypokinesis with sparing of the basal segments,trivial mitral regurgitation, trivial tricuspid regurgitation - Creatinine bumped from 1.18 to 1.28, will check in AM and restart home losartan if improved - Could consider LifeVest due to acute VT with EF decreased to 25% from 55% prior, jasiel this time patient is not interested - Noted rapid response overnight, patient reports he had something in his throat that he could not clear and was having trouble breathing due to that. Feeling fine this morning. - Encouraged smoking cessation - Transfer to med/surg with telemetry monitoring Cardiac Medications: ASA 81 mg Increase Coreg to 6.25 mg BID Crestor 40 mg Brilinta 90 mg BID Code Status: No Order I appreciate the opportunity to be involved in this patient's care. Cardiology will continue to follow. Coy Hartman, [facility] Cardiology Pager #[phone] [facility], [place] 01/31/2021 Interval History Currently Jorje Batista denies chest, arm, neck, and jaw pain, shortness of breath, palpitations, dizziness, lightheadedness, numbness, and tingling. ROS Pertinent ROS as discussed in the interval history. Current Vital Signs Temp: 97.7 F (36.5 C) BP: 129/91 Pulse: 69 O2 Device: NC - no humidity O2 Flow Rate (L/min): 2 l/min Resp: 19 Pain Ratin (out of 10) Weight: 98.4 kg (216 lb 14.9 oz) SpO2: 96 % Physical Exam Physical Exam Constitutional: He is oriented to person, place, and time. He appears well- developed and well-nourished. No distress. Neck: Normal range of motion. Neck supple. Cardiovascular: Normal rate, regular rhythm, S1 normal, S2 normal and normal heart sounds. Pulses: Radial pulses are 2+ on the right side and 2+ on the left side. Dorsalis pedis pulses are 2+ on the right side and 2+ on the left side. Pulmonary/Chest: Effort normal and breath sounds normal. He has no wheezes. He has no rales. Abdominal: Soft. Musculoskeletal: Normal range of motion. General: No edema. Neurological: He is alert and oriented to person, place, and time. Skin: Skin is warm and dry. Psychiatric: He has a normal mood and affect. His behavior is normal. Judgment and thought content normal. Nursing note and vitals reviewed. Labs I have reviewed all labs, and pertinent positives and negatives are discussed in the Assessment and Plan. Associated attestation - Marko Brantley MD - 01/31/2021 4:55 PM CDT I discussed the patient with the BLAISE and personally interviewed and examined the patient. I verifiedin the medical record all BLAISE documentation/findings, including history, physical exam, and medical decision making, and I agree with the BLAIES's documentation.Pallavi Vera MD - 01/31/2021 4:41 AM CDT Service not to be billed. Nurse notified to me that patient is somewhat tachypneic and restless. I advised the nurse to call rapid response. I called one call LUIS Estrella to transmit stat EKGs. I reviewed the EKGs. I reviewed the echocardiogram done larthu yesterday after patient's admission for STEMI. He had LAD intervention. Significant LV systolic dysfunction at 20%. Post intervention he relapsed into A. fib rapid ventricular rate started on IV amiodarone with the past primary cap coverer team. Rapid response team Dr. Prince called me and reviewed the patient situation. I reviewed the EKGs. To me the EKG center by 1 call both EKGs he was in normal sinus rhythm. Anterior ST elevations no changes. The team told me currently he was a bit wheezy otherwise comfortable requiring only 2 L of oxygen blood pressure well maintained heart rate unde r control. Overall clinical situation does not suggest in-stent thrombosis. Respiratory treatment given. I also advised small dose of IV Lasix therapy. May consider starting low-dose IV nitroglycerin in case of heart failure his left ventricle ejection fraction is significantly low. Dr. Prince will observe and if need be we will start him on IV nitroglycerin. We will see how we progresses. At present we will hold off on acti vation of Dog Track Kennel Manager team Dipika Victor PHARM D - 01/30/2021 9:22 PM CDT 01/30/2021 9:22 PM CDT - Patient was seen by pharmacy med reconciliation team HOME MEDICATIONS have been reconciled and updated to match the patient's home usage based on interview with patient's . Prior to Admission Medications Prescriptions Last Dose Informant Patient Reported? Taking? PROAIR HFA 108 (90 Base) MCG/ACT inhaler No Yes Sig: INHALE 1-2 PUFFS ORALLY EVERY 4 HOURS NEEDED FOR SHORTNESS OF BREATH OR WHEEZING SHAKE WELL BEFORE USING. aspirin 81 mg enteric coated tablet Yes Yes Sig: Take 81 mg by mouth Every 3 days diclofenac (VOLTAREN) 1 % gel Yes Yes Sig: Apply 2 g topically 4 times a day as needed for mild pain tqzqzryiqtz-dzpturkqvrpj-ngdtsftozd (TRELEGY ELLIPTA) 100-62.5-25 mcg/Inh inhaler No Yes Sig: Inhale 1 puff orally 1 time per day ibuprofen (ADVIL;MOTRIN-IB) 200 mg tablet Yes Yes Sig: Take 200-600 mg by mouth every 4 to 6 hours as needed for mild pain loratadine (CLARITIN) 10 mg tablet Yes Yes Sig: Take 10 mg by mouth 1 time per day losartan 25 mg tablet No Yes Sig: TAKE 1 TABLET (25 MG) BY MOUTH 1 TIME PER DAY omega-3 fatty acids (FISH OIL) 1000 mg capsule Yes Yes Sig: Take 1,000 mg by mouth 1 time per day selenium 200 MCG CAPS Yes Yes Sig: Take 200 mcg by mouth 1 time per day vitamin D3, cholecalciferol, 50 mcg (2000 unit) tablet Yes Yes Sig: Take 50 mcg by mouth 1 time per day Facility-Administered Medications: None Dipika Mercado, PHARM Arlene. documented in this encounter H&P Notes Marko Brantley MD - 01/30/2021 2:42 PM CDT Cardiology Inpatient History and Physical Assessment / Plan STEMI - LAD Atrial fibrillation with RVR Dyslipidemia HTN Tobacco smoking Plan: Patient with history of hypertension peripheral vascular disease presented to the hospital with the ST elevation VT, status post emergent coronary angiogram with PCI to the LAD. Currently patient is chest pain-free. He also had new onset atrial fibrillation with rapid ventricular response. We will start the patient on amiodarone drip for rate control. Will start on heparin drip for anticoagulation. Patient was started on aspirin and Brilinta in the Dog Track Kennel Manager. We will switched from Brilinta to Plavix in the morning in view of discharging patient home on triple therapy. (Loaded with Plavix 300 mg first dose followed by 75 mg daily). Continue statin beta-blockers. Counseled about the importance of tobacco smoking cessation. If patient does not convert from atrial fibrillation to sinus rhythm by tomorrow morning we will consider doing MESSI guided cardioversion. Discussed with patient about the whole situation including the possibility of doing MESSI guided cardioversion, patient voiced understanding and agreed to proceed if needed. HPI / History / ROS DIOGENES Recinos is a 70 year old male with a history of AAA, HTN, aorto-femoral bypass, obesity, PVD, HLD, smoking, who presented from [facility] due to chest pain. He notes on Saturday he had gone fishing all day, came home had pizza and then about an hour later noted pain across the shoulder blades as well as racing heart. He felt shaking. This resolved on it's own. Saturday he forget to take his BP medication. Today he felt good initially when he woke up then around 10 AM he was drinking coffee and noted pain across the shoulder blades again. He reported to [facility] where he got nitro and ASA, this eased the pain just a little bit. He was found to have a STEMI. He was transferred to [facility] and brought to livestock laborer where he was found to have 90% proximal LAD s/p PCI with 3.5 x 18 LUKE, post dilated with 4.0 balloon in the proximal segment. He was started on brilinta. During procedure he converted to afib, currently rates varying from 70-140. History Patient Active Problem List Diagnosis Chronic back pain Smoker Prostatic hypertrophy Plantar wart, left foot Peripheral vascular disease with claudication (HCC) H/O ulcerative colitis Adenomatous colon polyp Hammertoe H/O alcohol abuse Finger amputation, traumatic Metatarsalgia of left foot Urgency of urination Hx of laminectomy Wears partial dentures Hearing loss AAA (abdominal aortic aneurysm) (HCC) Occlusion of iliac artery (HCC) Pain medication agreement broken Status post laminectomy Pure hypercholesterolemia Chronic cervical pain Carpal tunnel syndrome Essential hypertension H/O aorto-femoral bypass Neurogenic claudication Obesity with body mass index of 30.0-39.9 Bilateral arm pain Medications Prior to Admission Medication Sig Dispense Refill Last Dose ogyksdssoic-szootpddbcuc-uxjfhtnmgd (TRELEGY ELLIPTA) 100-62.5-25 mcg/Inh inhaler Inhale 1 puff orally 1 time per day 2 each 4 losartan 25 mg tablet TAKE 1 TABLET (25 MG) BY MOUTH 1 TIME PER DAY 90 tablet 3 selenium 200 MCG CAPS Take 200 mcg by mouth 1 time per day betamethasone dipropionate (DIPROLENE) 0.05 % GEL APPLY TWICE DAILY TO AFFECTED SKIN FOR UP TO 2WEEKS (Patient taking differently: as needed Apply twice daily to affected skin for up to 2 weeks) 50 g 4 aspirin 81 mg enteric coated tablet Take 81 mg by mouth One tablet every three days 30 tablet 0 loratadine (CLARITIN) 10 mg tablet Take 10 mg by mouth 1 time per day PROAIR HFA 108 (90 Base) MCG/ACT inhaler INHALE 1-2 PUFFS ORALLY EVERY 4 HOURS NEEDED FOR SHORTNESS OF BREATH OR WHEEZING SHAKE WELL BEFORE USING. 8.5 g 2 No Known Allergies Past Medical History: Diagnosis Date AAA (abdominal aortic aneurysm) (HCC) Chronic back pain Colitis Colon polyp Emphysema lung (HCC) Finger amputation, traumatic H/O aorto-femoral bypass 01/29/2020 Hypertension Laceration of thigh, left, complicated PVD (peripheral vascular disease) with claudication (HCC) Past Surgical History: Procedure Laterality Date AORTAL-FEMORAL BYPASS Right 03/12/2015 Procedure: RIGHT AORTAL FEMORAL BYPASS;; Surgeon: Matteo Guaman DO BACK SURGERY NECK SURGERY Family History Problem Relation Age of Onset Not otherwise listed - Cancer Mother in her leg Alcohol Abuse Father Dysrhythmia Sister Throat Cancer Sister Pulmonary Embolism Sister Not otherwise listed - Cancer Brother pancreatic Pancreatic Cancer Brother No Known Problems Daughter Breast Cancer Sister Skin Cancer (non melanomatous) Brother Ulcerative Colitis Brother No Known Problems Daughter No Known Problems Maternal Grandmother No Known Problems Maternal Grandfather No Known Problems Paternal Grandmother No Known Problems Paternal Grandfather Anesthesia Reaction Neg Hx Social History Socioeconomic History Marital status: Spouse name: Corrie Number of children: 2 Years of education: Not on file Highest education level: Not on file Occupational History Occupation: retired chemical dependency attendant of [employer] Comment: retired in 2006 Tobacco Use Smoking status: Current Every Day Smoker Packs/day: 0.50 Years: 60.00 Pack years: 30.00 Types: Cigarettes Start date: 07/17/1958 Smokeless tobacco: Never Used Tobacco comment: smokes less than 0.5 per pack per day Substance and Sexual Activity Alcohol use: No Drug use: Not Currently Types: Marijuana Comment: occasional marijuana Sexual activity: Yes Partners: Female Social History Narrative , and remarried approx . He worked at [employer] in the , [employer] in ' and , then for [employer] until became disabled. Retired since 2007. Got care at [facility] from to 07/12, then back to [facility]. His daughters live in [place], [place]. Review of Systems Review of Systems Constitutional: Positive for fatigue. Negative for unexpected weight change. HENT: Negative. Eyes: Negative. Respiratory: Positive for shortness of breath. Negative for chest tightness. Cardiovascular: Negative for chest pain, palpitations and leg swelling. Gastrointestinal: Negative. Negative for blood in stool and nausea. Genitourinary: Negative. Musculoskeletal: Negative. Skin: Negative. Neurological: Negative. Psychiatric/Behavioral: Negative. Physical / Results Current Vital Signs Pain Ratin Physical Exam Constitutional: He appears healthy. No distress. HENT: Nose: Nose normal. Mouth/Throat: Oropharynx is clear. Eyes: Pupils are equal, round, and reactive to light. Conjunctivae are normal. Neck: Normal range of motion. Neck supple. No JVD present. Cardiovascular: Normal heart sounds and normal pulses. An irregularly irregular rhythm present. Tachycardia present. No murmur heard. Pulmonary/Chest: Effort normal and breath sounds normal. He has no rales. Abdominal: Soft. Bowel sounds are normal. Musculoskeletal: Normal range of motion. General: No edema. Neurological: He is alert and oriented to person, place, and time. Skin: Skin is warm and dry. Medical Decision Making I have: Independently visualized and interpreted an image, tracing or specimen previously or subsequently interpreted by another provider. Obtained/reviewed old records from [facility] or elsewhere (details outlined elsewhere in note). documented in this encounter Procedure Notes Isaura Cerda MD - 01/30/2021 12:50 PM CDT Immediate Post-Cardiac Catheterization Progress Note Att. Phys: Marko Brantley MD Operative Date: 01/30/2021 Surgeon: Isaura Cerda MD Rn Mental Health: none Pre-Operative Diagnosis: STEMI Post-Operative Diagnosis: CAD Anesthesia Type: See Dog Track Kennel Manager procedure log Operative Procedure: coronary angiogram & PCI to proximal LAD with LUKE Specimens: None Fluids Given: See Dog Track Kennel Manager procedure log Urine Output: See Dog Track Kennel Manager procedure log Estimated Blood Loss: 10 mL Drains: none Findings: 90% proximal LAD s/p PCI with 3.5 x 18 LUKE, post dilated with 4.0 balloon in the proximal segment Please see full report Complications: None Disposition/Physican Comminication: Transfer to the floor 1 Postoperative Condition: Stable The procedure was performed using moderate conscious sedation. The patient was monitored utilizing continuous pulse oximetry, continuous telemetry and intermittent blood pressure measurements throughout the procedures. Please see the patient's procedure log for further information. Moderate sedation physician start time 12:15 Moderate sedation physician stop time 12:46 Isaura Cerda MD Interventional Cardiology [facility] documented in this encounter Miscellaneous Notes Case Mgmt - Rosemary Ghotra LSW - 02/02/2021 11:08 AM CDTCASE MANAGEMENT / SOCIAL SERVICE FINAL TRANSITION PLAN TRANSITION DATE: 02/02 TRANSITION TIME: when ready INTENDED PAYER SOURCE FOR AGENCY: Not Applicable TRANSITION DESTINATION: Home [address] [facility], [place] DOES ACCEPTING FACILITY REQUIRE COVID TESTING BEFORE DISCHARGE: N/A TRANSITION TRANSPORTATION: Family Car TRANSPORTATION PAYMENT: Not applicable TRANSITION CHOICES OFFERED: Cardiac Rehab Home: Family/Friend Support DOES THE PATIENT HAVE A PRIMARY CARE PHYSICIAN? Yes Arelis Brody MD PATIENT / SUBSTITUTE DECISION MAKER GOAL UPON TRANSITION: First Choice: Cardiac Rehab Home: Family/Friend Support PATIENT CHOICE EDUCATION: Not applicable MEDICARE 3 IP MIDNIGHT CRITERIA MET: N/A RESOURCE(S) PROVIDED: nothing needed at this time DOES PATIENT HAVE CLOTHING TO WEAR AT DISCHARGE? Yes ANTICIPATED MODE OF TRANSPORT TO AND FROM FOLLOW UP APPOINTMENTS: Drive self Family Car VERIFIED CORRECT PHARMACY IS ENTERED FOR DISCHARGE: Yes - Pharmacy: [facility] [address] [facility] [phone] (Phone) METHOD OF PRESCRIBING MEDICATIONS: Medications to be E-prescribed to above pharmacy TRANSITION ROUNDING COMPLETED WITH THE FOLLOWING: Band Top Maker COMMENTS / PATIENT AND FAMILY RESPONSE TO PLAN: Patient will return home with family in [place], [place]. Family will provide transportation. Patienthas been referred for OP Cardiac Rehab-[facility]. CURRENT READMISSION RISK SCORE / HANDOFF: Predictive Risk Score Risk of Unplanned Readmission: 6 Handoff given: N/A SIGNED: PENNY Mckeon Grocery Stocker Case Management [facility], [place] P) [phone] Respiratory Therapy - Jennifer Ludwig RRT - 02/02/2021 10:00 AM CDTPt seen resting in chair on RA. SpO2 95%. BS clear and diminished. Pt denies SOB. Pt continues to receive trelegy daily. RT to follow. [facility] - Lorie Perez EP - 02/02/2021 9:32 AM CDTCardiac Rehab Phase 1 Inpatient Note: Diagnosis: STEMI/ stent Physical Activity Completed: Ambulate in vital Distance Ambulated: 264 feet Ambulation Assistance: independent Patient response to Exercise: good Exercise Comments: Steady gait with walking. No complaints. Gaitbelt used with activity Vitals Resting Heart Rate - 76 bpm Exercise Heart Rate - 80 bpm O2 Device - RA Exercise SpO2 - 96% Assessment/Plan: Tolerates activity well. Encouraged patient to ambulate in hallway 3-4 times daily as tolerated with gradual progression. -Progress as tolerated -Patient may self ambulate -Patient referred to outpatient Cardiac Rehab program -Continue to follow until until Discharge -Home activity and exercise teaching completed Recommendation: "Outpatient Cardiac Rehab- [place] Continue Inpatient Cardiac Rehab Plan of Care daily until discharge. Cardiac Rehab [facility] Pager: [phone] linical Team - Lee Sauceda RN - 02/02/2021 3:31 AM [id number] No events overnight VSS on RA AOx4 Up independently Diet - heart healthy Telemetry - NSR PIV L) AC Clinical Team - Shahla Umanzor RN - 02/01/2021 9:32 PM CDTPatient reported brief episode of numbness and tingling, resolved without intervention, Vitals takenand recorded. No CP or SOB. No Neuro changes. are Planning - Shahla Umanzor RN - 02/01/2021 7:29 PM CDT Problem: RISK FOR DECREASED CARDIAC TISSUE PERFUSION Goal: TISSUE PERFUSION: CARDIAC Description: DEFINITION: Adequacy of blood flow through the coronary vasculature to maintain heart function. 1 = Severe deviation from normal range, 2 = Substantial deviation from normal range, 3 = Moderate deviation from normal range, 4 = Mild deviation from normal range, 5 = No deviation from normal range. Outcome: NOC Rating 4 Flowsheets (Taken 02/01/20211926) Initial Score: 4 Patient specific goal for the day: No chest pain and maintain Tele NSR. Patient specific goal for the stay: Return to baseline. Patient Progress: VSS, remains in NSR on telemetry, denies cp or SOB, ambulated X 2 in vital without difficulty, SBA. patien anticipates discharge tomorrow. ase Mgmt - Rosemary Ghotra LSW - 02/01/2021 3:13 PM CDTCASE MANAGEMENT / SOCIAL SERVICE TRANSITION PLAN - PROGRESS NOTE PLAN: Awaiting Medical Doctor Recommendations for Transition Will Continue to Follow for Support and Progression Towards Final Transition Plan BARRIERS TO TRANSITION: Awaiting Collateral Information Medical barriers:medical stability; tele, cardiac rehab DOES ACCEPTING FACILITY REQUIRE COVID TESTING BEFORE DISCHARGE: N/A COMMENTS / PATIENT AND FAMILY RESPONSE TO PLAN: Chart review completed. Goal upon discharge will be to return home with family in [place], [place]. Family will provide transportation. Will continue to follow, await treatment team recommendations and provide discharge options as appropriate. IS PATIENT'S ADMISSION ASSOCIATED WITH TIA, ISCHEMIC, OR HEMORRHAGIC STROKE?: No PATIENT / SUBSTITUTE DECISION MAKER GOAL UPON TRANSITION: First Choice: Cardiac Rehab Home: Family/Friend Support ANTICIPATED NEEDS UPON TRANSITION: Cardiac Rehab Home: Family/Friend Support RESOURCE(S) PROVIDED: nothing needed at this time ANTICIPATED MODE OF TRANSPORT UPON TRANSITION: Family Car ANTICIPATED MODE OF TRANSPORT TO AND FROM FOLLOW UP APPOINTMENTS: Drive self Family Car VERIFIED CORRECT PHARMACY IS ENTERED FOR DISCHARGE: Yes - Pharmacy: [facility] [address] [facility] [facility] [phone] (Phone) TRANSITION ROUNDING COMPLETED WITH THE FOLLOWING: Band Top Maker SIGNED: PENNY Mckeon Grocery Stocker Case Management [facility] [place] P) [phone] linical Team - Delores Roper RN - 02/01/2021 3:05 PM [id number] AOx4. VSS on RA. Denies pain and SOB. Up SBA, steady gait. Pt was afib 110-130s. Converted to NSR at 0950, HR 70-80s. Amiodarone gtt discontinued, oral dose started. Pt reporting intermittent numbness/tingling to bilateral hands and R) thigh, team aware. Clinical Team - Ananya Awad RN - 02/01/2021 2:19 PM CDTInterventional Cardiology nurse visit done with patient. He suffered a STEMI and PCI to the pLAD onMay 3rd. Patient has not had a Talent Recruiter in the past. He has had what he believes are cardiac symptoms for many years. He is willing to come to [place] for a follow up appointment. He would like his to be involved in that discussion. He doesn't recall any of the names of the MDs that have followed w ith him. Reviewed that blog writer can call him once he is discharged and schedule with him and his . Patient discussed his episode that lead to a ELECTRIC LOCOMOTIVE CRANE OPERATOR call, but feels it is that he is a smoker and he has not been able to drink like he normally would so he can't cough the phlegm up. Agrees to taking the medications as they ordered. [facility] - Naida Cast EP - 02/01/2021 1:45 PM CDTCardiac Rehab Phase 1 Inpatient Note: Diagnosis: STEMI/stent Physical Activity Completed: Ambulate in vital Distance Ambulated: 550 feet Ambulation Assistance: independent Patient response to Exercise: good Exercise Comments: Steady gait. Tolerates exercise well. No symptoms of chest pain or shortness of breath. Gaitbelt used with activity Vitals Resting Heart Rate - 70's bpm Exercise Heart Rate - 80's bpm O2 Device - RA Assessment/Plan: Tolerates activity well. Encouraged patient to ambulate in hallway 3-4 times daily as tolerated with gradual progression. -Progress as tolerated -Patient referred to outpatient Cardiac Rehab program -Continue to follow until until Discharge -Home activity and exercise teaching completed Recommendation: "Outpatient Cardiac Rehab Continue Inpatient Cardiac Rehab Plan of Care daily until discharge. Cardiac Rehab Alpha Pager: [phone] Respiratory Therapy - Jennifer Ludwig RRT - 02/01/2021 9:59 AM CDTPt seen resting in bed on RA. SpO2 95%. BS clear and diminished. Pt receiving Trelegy daily. Pt denies SOB. RT to follow. are Planning - Isai Barron RN - 02/01/2021 6:30 AM CDT Problem: RISK FOR DECREASED CARDIAC TISSUE PERFUSION Goal: TISSUE PERFUSION: CARDIAC Description: DEFINITION: Adequacy of blood flow through the coronary vasculature to maintain heart function. 1 = Severe deviation from normal range, 2 = Substantial deviation from normal range, 3 = Moderate deviation from normal range, 4 = Mild deviation from normal range, 5 = No deviation from normal range. Outcome: NOC Rating 4 Flowsheets (Taken 02/01/2021 0700) Initial Score: 3 Target Score: 5 Plan of care reviewed with: Patient Patient specific goal for the day: No chest pain and maintain Tele NSR. Patient specific goal for the stay: Return to baseline. Achieve goal for stay: By discharge Patient Progress: pt vss on RA. pt converted to Afib with hr between 110-130's amiodarone bolus and gtt intitiated. pt denies any chest pain, will continue to monitor Clinical Team - Isai Barron RN - 02/01/2021 2:49 AM CDTPt is alert and oriented x4. Pt vss on RA. Pt is on tele- NSR. Pt denies any pain. Right radial siteis clean and dry. Pt is up SBA. @0220 pt converted to Afib with HR between 110-130, Dr. Cain notified, amiodarone bolus and gtt given, see MAR. Alonzo () updated linical Team - Levi Houston RN - 01/31/2021 6:45 PM CDTShift 0700 - 1900 Received pt from 5th floor circa 1400. Report received from Dinah (6CD charge preparation technician). AO x 4 VSS on RA Tele NSR HR 70s Pt denies pain, dizziness, and N/V. SOB w/ exertion. R) radial site CDI. Open to air. CMS to extremity intact. Passing gas. No BM yet. Will continue to monitor. are Planning - Levi Houston RN - 01/31/2021 6:45 PM CDT Problem: RISK FOR DECREASED CARDIAC TISSUE PERFUSION Goal: TISSUE PERFUSION: CARDIAC Description: DEFINITION: Adequacy of blood flow through the coronary vasculature to maintain heart function. 1 = Severe deviation from normal range, 2 = Substantial deviation from normal range, 3 = Moderate deviation from normal range, 4 = Mild deviation from normal range, 5 = No deviation from normal range. Flowsheets (Taken 01/31/2021 1527) Initial Score: 3 Target Score: 5 Plan of care reviewed with: Patient Patient specific goal for the day: No chest pain and maintain Tele NSR. Patient specific goal for the stay: Return to baseline. Achieve goal for stay: By discharge Patient Progress: Pt VSS on RA. Tele NSR HR 70s. Pt denies chest pain, dizziness, N/V. SOB w/ exertion. R) radial cath site open to air, CDI, and CMS intact to extremity. Will continue to monitor. Clinical Team - Clary Jimenez RN - 01/31/2021 2:37 PM CDTPatient transferred to 6th floor, belongings sent with. All lines assessed. Report given to bedside nurse. No other concerns at this time. Four eyes on skin completed with Zachariah Andino RN. Old scar on abdomen. Pressure points within defined limits. No other skin concerns at this time. ase Mgmt - Lisa Marquez RN - 01/31/2021 1:57 PM CDT CASE MANAGEMENT / SOCIAL SERVICE TRANSITION PLAN - INITIAL ASSESSMENT TRANSITION PLAN: Transfer out of [facility] to the medical unit room 641 Awaiting Medical Doctor Recommendations for Transition Will Continue to Follow for Support and Progression Towards Final Transition Plan Regarding discharge planning, goal discharge to home with family support. Patient anticipates that family will provide transportation to home at discharge. BARRIERS TO TRANSITION: Admission date 01/30/2021 Diagnostic Tests Pending Discharge Needs to be Determined Medical barriers:post procedure 01/30/2021 Operative Procedure: coronary angiogram & PCI Lines peripheral IV Medications list includes aspirin, coreg, crestor, Brilinta COMMENTS / PATIENT AND FAMILY RESPONSE TO PLAN: This social work case manager visited with patient, introduced self and explained social work case manager role. Bedside nurses ready for transition to the 6th floor unit, CM accompanied. Patient has been alert and able to answer questions for the initial case management assessment. Patient has stated that he lives in a house [address] main level. Patient has a walker if equipment was needed, says not dependent on assist devices for ambulation. Patient does drive, or spouse drives to appointments. He has a primary care provider ( chart lists Arelis Brody) Patient verifies information is up to date. Patient anticipates that goal for discharge -home with family support. Patient anticipates that family will provide transportation to home at discharge. He has stated that his preferred pharmacy has been [facility]. ADMISSION DX: stemi PATIENT STATUS: Inpatient RELEASE OF INFORMATION: No SOURCES OF INFORMATION (See demographics for contact information): Medical Record Nurse: Bedside Patient CURRENT LIVING SITUATION / LEVEL OF ASSISTANCE: Address listed [address] [place] [address] [place] [address] Family contact Corrie Batista phone [phone] Lives with in a house Independent COMMUNITY SERVICES: None HEALTHCARE DIRECTIVE: No POWER OF DEVELOPMENT WRITER: None FINANCIAL CONCERNS: No Concerns MEDICARE/MEDICARE PART A [facility] PRIMARY CARE PHYSICIAN: Yes Aerlis Brody MD : No - patient stated IS PATIENT'S ADMISSION ASSOCIATED WITH TIA, ISCHEMIC, OR HEMORRHAGIC STROKE?: No LANGUAGE / COMMUNICATION BARRIERS: No PATIENT / SUBSTITUTE DECISION MAKER GOAL UPON TRANSITION: First Choice: Home: Family/Friend Support ANTICIPATED NEEDS, TRANSITION CHOICES OFFERED: Home: Family/Friend Support RESOURCE(S) PROVIDED: NA DOES PATIENT HAVE CLOTHING TO WEAR AT DISCHARGE? Other: family to provide ANTICIPATED MODE OF TRANSPORT UPON DISCHARGE: Family Car VERIFIED CORRECT PHARMACY IS ENTERED FOR DISCHARGE: No Past [facility] CURRENT READMISSION RISK SCORE Predictive Risk Score Risk of Unplanned Readmission: 6 Please refer to readmission risk assessment flowsheet for further details. Need assistance or independent for activities of daily living- Independent SIGNED: Lisa Marquez RN BS [facility] [employer] [facility] [phone] Pager [phone] linical Team - Dinah Krueger RN - 01/31/2021 1:45 PM CDTReceived pt into room 641. See flow sheet for VS. Denies pain or SOB. Oriented to room. Plan of c are reviewed. Voices good understanding Upon Transfer to 1 skin assessment completed with Clary Jimenez RN Upon skin assessment including pressure points findings include: Right radial site clean and dry. No other skin breakdown noted Plan/Intervention Closely monitor ardiac Rehab - Lorie Perez EP - 01/31/2021 10:04 AM CDTCardiac Rehab Phase 1 Inpatient Note: Diagnosis: STEMI/ stent Physical Activity Completed: Ambulate in vital Distance Ambulated: 264 feet Ambulation Assistance: SBA Patient response to Exercise: good Exercise Comments: Steady gait with walking. Notes some overall body stiffness but feeling much better then this am. Gaitbelt used with activity Vitals Exercise Heart Rate - 88 bpm O2 Device - RA Exercise SpO2 - 96% Assessment/Plan: Tolerates activity well. Encouraged patient to ambulate in hallway 3-4 times daily as tolerated with gradual progression. -Progress as tolerated -Patient referred to outpatient Cardiac Rehab program -Continue to follow until until Discharge -Home activity and exercise teaching completed Recommendation: "Outpatient Cardiac Rehab- [place] Continue Inpatient Cardiac Rehab Plan of Care daily until discharge. Cardiac Rehab Alpha Pager: [phone] Respiratory Therapy - Miguelangel Hilton RRT - 01/31/2021 9:31 AM CDTPatient seen for daily inhalers, but denied them due to patient status. Denied any SOB at this time.Seems to be comfortably resting in bed on 2L NC. Sats 96%. Stated will bring home trelegy inhaler today and will wait till then. Noted to patient that he can have PRN albuterol if any SOB. Rt to follow. apid Response - Satnam Prince MD - 01/31/2021 4:42 AM CDT Rapid Response Note Name: Jorje Batista Location: Date: 01/31/2021 Time: 4:42 AM CDT Reason for rapid response: SOB Code Status: No Order SUBJECTIVE: Rapid response was called on this patient due to worsening shortness of breath. In brief summary, Jorje is a 70 year old male who is admitted for STEMI s/p LAD stent on 01/30/2021 complicated with atrial fibrillation with RVR but now rate controlled. On arrival of the rapid response team, patient was noted to be sitting on his bed. He was on 2L just for comfort. He was diaphoretic. BP was 139/70, HR 70s. Stat EKG showed ST elevation in V2-V3 unchanged from prior EKG. CXR showed pulmonary vascular congestion. Case was discussed with Dr Vera ( cap coverer business continuity management director), recommended a dose of lasix. Lasix 40 mg IV was given. In addition, patient was given hydroxyzine for anxiety. OBJECTIVE: BP 141/99 Pulse 79 Temp 97.7 F (36.5 C) Resp 25 Ht 175 cm (68.9") Wt 98.4 kg (216 lb 14.9 oz) SpO2 94% BMI 32.13 kg/m2|| PLAN: 1. Lasix IV 40 mg one time dose 2. Hydroxyzine 3. Oxygen supplement as needed Satnam Prince MD Internal Medicine Resident, PGY-2 Pager #[phone] [place], [place] apid Response - Kyra Robledo RN - 01/31/2021 3:54 AM CDTRapid Response Team Date of Call: 01/31/21 Time Rapid Response Team paged/Rescue Nurse called: [phone] Rapid Response Team Location: Room 528 Reason for Activating: Respiratory: Respiratory distress Cardiac: Neurological: Signs and Symptoms of Sepsis?: Other Reasons: Assessment, Notification, and Disposition Assessment: C: Full code S: PT stated he was SOB and looking diaphoretic. B: Pt was admitted after having a stent place to the LAD. is scheduled to have a MESSI in the AM. A: Upon arrial stat EKG was ordered with no change from the previous. EKG was faxed to the cap coverer. Pt was given a neb. R: Pt did get releif from the Neb and stating his breathing felt better. Pt did state he felt tired.Plan to give a dose of lasix and obtain an CXR. Provider Name: Family or [employer] notified: Patient Disposition: Stabilized with ELECTRIC LOCOMOTIVE CRANE OPERATOR interventions/remained on current unit Additional Comments: Kyra Robledo RN Clinical Team - Giuliana Contreras RN - 01/30/2021 5:17 PM CDTShift Summary [id number]: Neuro: A&Ox4. Follows commands. ENRRIQUE. Cardiac: Came into ER with STEMI, brought down to livestock laborer and had a stent placed for 90% occlusion.Brought up from medical laboratory technologist, went into A fib 170s, sustaining 130-140s. Cardiology was notified was started patient on amio drip, currently running at 1 mg with HR 70-80s. EKG taken at [address] elevation, asymptomatic. Cardiology aware, no changes made. PTT over 150 for past 3 draws. Heparin at 12 units currently. Resp: RA. Sating above 90%. Lung sounds clear with a mild expiratory wheeze. GI/: Voiding. Uses the urinal, see flowsheets. No BM during shift. Bowel sounds hypoactive. Low appetite. Heart Healthy diet. NPO at midnight. IV/Drains: L AC PIV. L hand PIV, amio running at 1 mg. Skin: Previous abdominal scar. Missing left pointer finger. Left radial band in place. Clinical Team - Yael Solis RN - 01/30/2021 1:19 PM CDTTransferred from livestock laborer to [facility] Rm 528. 4 eyes skin assessment completed with LUIS Giordano. Call lightwithin reach and oriented to room. Scar to abdomen. R) radial band in place, C/D/I. PIV to L) AC and L) hand. L) finger amputation noted. Arrived to Rm 528 with HR 130's. While bedside report was given, HR jumped to 170's in A-fib and sustained HR 130-140's. documented in this encounter Plan of Treatment Date Type Specialty Care Team Description 02/08/2021 Office Visit Neurology 02/09/2021 Office Visit [facility] Arelis Brody MD [address] [place] [address] [phone] 03/17/2021 Ancillary Procedure Radiology 03/17/2021 Office Visit Interventional Abbi Muir PA Radiology [address] [place] [address] [phone] 04/21/2021 Appointment Radiology Yael Wise APRN-SLAUGHTERER RELIGIOUS RITUAL [address] [place] [address] [phone] Name Type Priority Associated Diagnoses Order S chedule XRAY CHEST PORTABLE - Imaging STAT today for 1 Occurrences starting 2020 until BASIC METABOLIC PANEL Lab Routine Stented co ronary artery Expected: 02/09/2021 ST elevation myocardial (Blaise roximate), Expires: infarction involving 022 left anterior descending (LAD) coronary artery (HCC) Name Type Priority [facility] Diagnoses [facility] Referral Routine Stented co ronary artery Ordered: 02/02/[address] elevation myocardi al 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 AORTA N/A / [id number] documented as of this encounter Procedures Procedure Name Priority Date/Time Associated Comments Diagnosis LAB ONLY-COMPLETE Routine 02/02/2021 8:05 Result s for this BLOOD COUNT WITH AM CDT procedure a re in DIFFERENTIAL the results section. TROPONIN I Routine 02/02/2021 8:05 Results for this AM CDT procedure are i n the results section. BASIC METABOLIC PANEL Routine 02/02/2021 8:05 Re sults for this AM CDT procedure are i n the results section. LAB ONLY-COMPLETE Routine 02/02/2021 8:05 Result s for this BLOOD COUNT WITH AM CDT procedure a re in DIFFERENTIAL the results section. PTT Timed Routine 01/31/2021 1:50 Results fo r this PM CDT procedure are i n the results section. PTT Routine 01/31/2021 7:27 Results for this AM CDT procedure are i n the results section. TROPONIN I Routine 01/31/2021 7:27 Results for this AM CDT procedure are i n the results section. COMPREHENSIVE Routine 01/31/2021 7:27 Results fo r this METABOLIC PANEL AM CDT procedure ar e in the results section. XRAY CHEST PORTABLE Routine 01/31/2021 5:35 Resu lts for this AM CDT procedure are i n the results section. GLUCOSE BY METER, Routine 01/31/2021 4:01 Result s for this POCT AM CDT procedure are i n the results section. EKG STAT 01/31/2021 3:02 Results for this AM CDT procedure are i n the results section. PTT Timed Routine 01/31/2021 1:11 Results fo r this AM CDT procedure are i n the results section. GLUCOSE BY METER, Routine 01/30/2021 8:21 Result s for this POCT PM CDT procedure are i n the results section. LAB ONLY-COMPLETE Routine 01/30/2021 6:41 Result s for this BLOOD COUNT WITH PM CDT procedure a re in DIFFERENTIAL the results section. GLYCATED HEMOGLOBIN Routine 01/30/2021 6:41 Resu lts for this PM CDT procedure are i n the results section. LAB ONLY-COMPLETE Routine 01/30/2021 6:41 Result s for this BLOOD COUNT WITH PM CDT procedure a re in DIFFERENTIAL the results section. PTT Timed Routine 01/30/2021 5:19 Results fo r this PM CDT procedure are i n the results section. ECHO ADULT COMPLETE Routine 01/30/2021 4:28 Resu lts for this PM CDT procedure are i n the results section. EKG Routine 01/30/2021 4:17 Results for this PM CDT procedure are i n the results section. PTT Timed Routine 01/30/2021 4:14 Results fo r this PM CDT procedure are i n the results section. PTT STAT 01/30/2021 3:19 Results for this PM CDT procedure are i n the results section. LIPID PANEL Routine 01/30/2021 2:38 Results for this PM CDT procedure are i n the results section. PTT EDMAR 01/30/2021 2:38 Results for this PM CDT procedure are i n the results section. HEPATIC FUNCTION Routine 01/30/2021 2:38 Results for this PANEL PM CDT procedure are i n the results section. EKG STAT 01/30/2021 1:51 Results for this PM CDT procedure are i n the results section. ACTIVATED CLOTTING Routine 01/30/2021 12:48 Resul ts for this TIME POCT PM CDT procedure are i n the results section. CARDIAC CATH POSSIBLE Routine 01/30/2021 12:25 Re sults for this ANGIOPLASTY STENT PM CDT procedure are in CHAINSTITCH HEMMER the results section. documented in this encounter Results LAB ONLY-COMPLETE BLOOD COUNT WITH DIFFERENTIAL (02/02/2021 8:05 AM CDT) [facility] WBC 8.7 4.0 - 11.0 K/uL [address] RBC 5.19 4.40 - 5.80 [place] [address] [facility] M/uL Hemoglobin 16.7 13.5 - 17.[address] g/dL Hematocrit 50.2 (H) 40.0 - 50.0 % [address] MCV 96.7 80.0 - 98.[address] MCH 32.2 25.5 - 34.[address] MCHC 33.3 31.5 - 36.[address] g/dL RDW-CV 13.3 11.5 - 15.5 % [address] RDW-SD 48.0 35.5 - 50.[address] Platelet Count 169 140 - 400 K/uL [address] MPV 10.2 8.5 - 12.[address] Seg Neut Absolute 5.7 1.8 - 8.0 K/uL [address] Lymphocytes Absolute 1.8 0.8 - 4.1 K/uL [place] [address] [facility] Monocytes Absolute 1.1 (H) 0.0 - 1.0 K/uL [place] [address] [facility] Eosinophils Absolute 0.1 0.0 - 0.7 K/uL [place] [address] [facility] Basophil Absolute 0.1 0.0 - 0.2 K/uL [address] Immature Granulocyte 0.03 0.00 - 0.[address] Absolute K/uL Neutrophils Abs. 5,700 /uL [address] (Segs and Bands) Neutrophils Percent 65.2 % [address] Lymphocytes Percent 20.5 % [address] Monocytes Percent 12.4 % [address] Immature Granulocyte 0.3 % [address] Percent Eosinophils Percent 0.9 % [address] Basophil Percent 0.7 % [address] Nucleated RBC 0 /[address] Specimen Blood - Blood specimen (specimen) Performing Organization Address [facility] Phone Number [address] [place] [phone] BASIC METABOLIC PANEL WITH GFR (02/02/2021 8:05 AM CDT) [facility] Glucose 106 (H) 70 - 100 mg/dL [address] BUN 25 (H) 6 - 22 mg/dL [address] Creatinine 1.52 (H) 0.80 - 1.[address] mg/dL BUN/Creatinine Ratio 16.4 10.0 - 25.[address] Sodium 138 135 - 145 meq/L [address] Potassium 4.3 3.5 - 5.3 meq/L [address] Chloride 102 99 - 110 meq/L [address] CO2 29 20 - 29 meq/L [address] Anion Gap with K 11 6 - 20 meq/L [address] Calcium 8.9 8.5 - 10.[address] mg/dL Age [address] eGFR Non- 45 (L) >=[address] [place] mL/min/1.73m2 eGFR 55 (L) >=[address] mL/min/1.73m2 Specimen Blood - Blood specimen (specimen) Performing Organization Address [facility] Phone Number [address] [place] [phone] TROPONIN I (02/02/2021 8:05 AM CDT) Pathologist [facility] Troponin I 20.654 (H) 0.000 - 0.028 ng/mL [address] Specimen Blood - Blood specimen (specimen) Performing Organization Address [facility] Phone Number [address] [place] [phone] PTT (01/31/2021 1:50 PM CDT) Pathologist [facility] APTT 31 24 - [address] Specimen Blood - Blood specimen (specimen) Performing Organization Address [facility] Phone Number [address] [place] [phone] PTT (01/31/2021 7:27 AM CDT) Pathologist [facility] APTT 105 (H) 24 - [address] Specimen Blood - Blood specimen (specimen) Performing Organization Address [facility] Phone Number [place] [address] [place] [place] [address] [place] [address] TROPONIN I (01/31/2021 7:27 AM CDT) Pathologist [facility] Troponin I 58.705 (H) 0.000 - 0.028 ng/mL [address] Specimen Blood - Blood specimen (specimen) Performing Organization Address [facility] Phone Number [address] [place] [address] [place] [address] COMPREHENSIVE METABOLIC PANEL (01/31/2021 7:27 AM CDT) Pathologist [facility] Glucose 142 (H) 70 - 100 mg/dL [address] BUN 17 6 - 22 mg/dL [address] Creatinine 1.28 0.80 - 1.[address] mg/dL BUN/Creatinine Ratio 13.3 10.0 - 25.[address] Sodium 137 135 - 145 meq/L [address] Potassium 3.8 3.5 - 5.3 meq/L [address] Chloride 102 99 - 110 meq/L [address] CO2 23 20 - 29 meq/L [address] Anion Gap with K 16 6 - 20 meq/L [address] Calcium 9.0 8.5 - 10.[address] mg/dL Protein Total 7.5 6.0 - 8.2 g/dL [address] Albumin 4.1 3.5 - 5.0 g/dL [address] Alkaline Phosphatase 78 30 - 150 U/L [address] AST - SGOT 261 (H) 0 - 35 U/L [address] ALT - SGPT 63 (H) 0 - 55 U/L [address] Bilirubin Total 0.8 0.2 - 1.2 mg/dL [address] Age 70 [address] eGFR Non- 55 (L) >=[address] [place] mL/min/1.73m2 eGFR 67 >=[address] mL/min/1.73m2 Specimen Blood - Blood specimen (specimen) Performing Organization Address City/State/Zipcode Phone Number [address] [place] [address], [place] [address] XRAY CHEST PORTABLE - (01/31/2021 5:35 AM CDT) Specimen Narrative Performed At [facility] Patient Name: JORJE BATISTA Date of : 1950 Procedure: XRAY CHEST PORTABLE Date of Service: 01/31/2021 EXAM: XRAY CHEST PORTABLE INDICATION:wheezing, SOB COMPARISON(S): Chest x-ray from 05/05/2019 FINDINGS/IMPRESSION: The cardiac silhouette is in the upper limits of louise l in size. There is pulmonary vascular congestion as well as interstiti al and hazy groundglass opacities in the lungs concerning for pulm onary edema. Diffuse infectious process can appear similar. No loba r consolidation identified. No effusion or pneumothorax. Finalized by: Agustin Olivas MD on 01/31/2021 8:18 AM CDT Patient/Procedure Information: [facility] MRN/RANDY: [id number] Order Number: [id number] Accession Number: [id number] Ordering Provider: MARKO BRANTLEY Authorizing Provider: MARKO BRANTLEY Procedure Note Interface, Radiantres - 01/31/2021 8:20 AM CDT Patient Name: JORJE BATISTA Date of : 1950 Procedure: XRAY CHEST PORTABLE Date of Service: 01/31/2021 EXAM: XRAY CHEST PORTABLE INDICATION:wheezing, SOB COMPARISON(S): Chest x-ray from 05/05/2019 FINDINGS/IMPRESSION: The cardiac silhouette is in the upper l imits of normal in size. There is pulmonary vascular congestion as well as interstitial and hazy groundglass opacities in the lungs concerning for pulmonary edema. Diffuse infectious process can appear similar. No lobar con solidation identified. No effusion or pneumothorax. Finalized by: Agustin Olivas MD on 01/31/2021 8:18 AM CDT Patient/Procedure Information: [facility] MRN/RANDY: [id number] Order Number: [id number] Accession Number: [id number] Ordering Provider: MARKO BRANTLEY Authorizing Provider: MARKO BRANTLEY Performing Organization Address City/State/Zipcode Phone Number [id number] GLUCOSE BY METER, POCT (01/31/2021 4:01 AM CDT) Pathologist Sig nature Glucose POC 176 (H) 70 - 99 mg/dL [facility] O POINT OF CARE TESTING Specimen Blood - Blood specimen (specimen) Performing Organization Address [facility] Phone Number [facility] POINT OF [address] [place] [place] [address] CARE TESTING EKG (01/31/2021 3:02 AM CDT)Only the most recent of3 resultswithin the time period is included. EKG [employer] GEOVANNA [employer]B Sinus rhythm with occasional Premature ventricular com plexes Anteroseptal infarct (cited on or before 30-JAN-2021) ACUTE VT / STEMI Abnormal ECG When compared with ECG of 30-JAN-2021 16:17, Premature ventricular complexes are now Present Premature supraventricular complexes are no longer Pre sent QT has shortened Ventricular Rate: 79 BPM Atrial Rate: 79 BPM P-R Interval: 144 ms QRS Duration: 84 ms Q-T Interval: 356 ms QTc Calculation(Bazett): 408 ms Calculated P Due West: 56 degrees Calculated R Due West: 58 degrees Calculated T Due West: 84 degrees Specimen Narrative Performed At This result has an attachment that is no t available. Performing Organization Address [facility] Phone Number DEBI AUSTIN LLB PTT (01/31/2021 1:11 AM CDT) Pathologist [facility] APTT 100 (H) 24 - [address] Specimen Blood - Blood specimen (specimen) Performing Organization Address [facility] Phone Number [place] [address] [facility] [place] [address] GLUCOSE BY METER, POCT (01/30/2021 8:21 PM CDT) [facility] Glucose POC 176 (H) 70 - 99 mg/dL [facility] POINT OF CARE TESTING Specimen Blood - Blood specimen (specimen) Performing Organization Address [facility] Phone Number [facility] POINT OF [address] [place] [address] CARE TESTING LAB ONLY-COMPLETE BLOOD COUNT WITH DIFFERENTIAL (01/30/2021 6:41 PM CDT) [facility] WBC 11.1 (H) 4.0 - 11.0 K/uL [address] RBC 5.15 4.40 - 5.[address] M/uL Hemoglobin 16.7 13.5 - 17.[address] g/dL Hematocrit 49.5 40.0 - 50.0 % [address] MCV 96.1 80.0 - 98.[address] MCH 32.4 25.5 - 34.[address] MCHC 33.7 31.5 - 36.[address] g/dL RDW-CV 13.2 11.5 - 15.5 % [address] RDW-SD 47.5 35.5 - 50.[address] Platelet Count 180 140 - 400 K/uL [address] MPV 10.1 8.5 - 12.[address] Seg Neut Absolute 7.9 1.8 - 8.0 K/uL [address] Lymphocytes Absolute 2.0 0.8 - 4.1 K/uL [place] [address] [facility] Monocytes Absolute 1.0 0.0 - 1.0 K/uL [address] Eosinophils Absolute 0.1 0.0 - 0.7 K/uL [place] [address] [facility] Basophil Absolute 0.1 0.0 - 0.2 K/uL [address] Immature Granulocyte 0.04 0.00 - 0.06 [place] [address] [facility] Absolute K/uL Neutrophils Abs. 7,900 /uL [address] (Segs and Bands) Neutrophils Percent 71.2 % [address] Lymphocytes Percent 18.2 % [address] Monocytes Percent 9.2 % [address] Immature Granulocyte 0.4 % [address] Percent Eosinophils Percent 0.5 % [address] Basophil Percent 0.5 % [place] [address] [facility] Nucleated RBC 0 /[address] Specimen Blood - Blood specimen (specimen) Performing Organization Address [facility] Phone Number [address] [place] [phone] GLYCATED HEMOGLOBIN (01/30/2021 6:41 PM CDT) Pathologist [employer] Hgb A1C 5.6 <5.7 % [facility] Estimated Average 114 mg/dL [facility] Y Glucose Specimen Blood - Blood specimen (specimen) Narrative Performed At ADA Interpretive Guidelines [facility] When Using HbA1c for Diagnosis Prediabetes 5.7 - 6.4% Diabetes >= 6.5% When Using HbA1c for Monitoring a Person Known to Have Diabetes, < 7% is a reasonable goal for many nonpregna nt adults, < 7.5% should be considered in children and adolescents (<19 years) with type 1 diab etes. ADA Standards of Medical Care in Diabete s - 2019 Performing Organization Address [facility] Phone Number [facility] [address] [place], [place] [phone] PTT (01/30/2021 5:19 PM CDT) Pathologist Sig amy APTT 134 (H) 24 - [address] Specimen Blood - Blood specimen (specimen) Performing Organization Address [facility] Phone Number [address] [place] [address], [place] [address] ECHO ADULT COMPLETE (01/30/2021 4:28 PM CDT) Specimen Narrative Performed At This result has an attachment that is no t available. [facility] Patient: JORJE BATISTA MR#: [id number] Exam Date: 01/30/2021 Transthoracic Echocardiogram [facility] [address] [place] [address] BP: HR: : 1950 Exam Location: Height: 69.00 "(175.3 cm) Age: 70 year(s) Patient Room: [facility] Weight: 219 lbs.(99.34 kg) Gender: Male Patient Status: Inpatient BSA: 2.15 m2 Editor Continuity And Script: BILLIE LONGO RDCS Reading Physician: PALLAVI VERA MD Ordering Physician: COY HARTMAN CNP Procedure Indication(s): Post STEMI Examination: TTE Complete 2D(m-mode), Complete Spectral Doppler, Color Doppler Conclusions Left Ventricle: Markedly reduced left ventricular systol ic function. The ejection fraction is visually estimated to be 25 %. Grade 2 left ventricular diastolic dysfunction. A false tendon is p resent. Right Ventricle: Normal right ventricular systolic function. IVC: Dilated IVC with normal respirophasic changes. Pericardium: No significant pericardial effusion. No functionally significant valvular abnormalities. Comparison Study Comparison Date: 03/14/2015 Comparison Study: Transthoracic Echocardiogram New RWMA's noted on today's exam, LV overall function has decreased from 55% Findings Left Ventricle: Normal left ventricular size. Normal lef t ventricular wall thickness. Markedly reduced left ventricular systolic function. The ejection fraction is visually estimated to be 25 %. There is global hypokinesis with sparing of the basal segments. Grade 2 left ventricular diastolic dysfunction. A false tendon is p resent. Left Atrium: Vchl-ru-nnkumwhnka dilated left atrium. Aortic Valve: The aortic valve is probably tricuspid. No significant aortic regurgitation. No aortic stenosis. Aorta: There is dilatation of the ascending aorta measuring 4 1.0 mm. Mitral Valve: Mild mitral leaflet thickening. Trivial mitral regurgitation. No mitral stenosis. IAS: No evidence of an atrial shunt by color Doppler. Right Ventricle: Normal right ventricular size. Normal right ventricula r systolic function. Pulmonary Artery: The tricuspid jet envelope definition is inadequate for estimation of RV systolic pressure. Right Atrium: Dilated right atrium. Tricuspid Valve: Normal tricuspid valve structure. Trivial tricuspid re gurgitation. Pulmonic Valve: Pulmonary valve not well visualized. IVC: Dilated IVC with normal respirophasic changes. Pericardium: No significant pericardial effusion. No functionally significant valvular abnormalities.No pleural effusion. Measurements Left Ventricle Aortic Valve Label Value Normal Value Label Value Normal Value LVDd, 2D 55.6 mm LVOT Vmax 68 cm/s LVDs, 2D 26.9 mm AV Vmax 81 cm/s IVSd, 2D 10.7 mm LVOTd 22 mm LVPWd, 2D 9.9 mm LVOT VTI 10.42 cm FS, 2D 52 % LVOT PGmax 2 mmHg LVEF, 2D 82 % AV Vmean 59 cm/s LVEDV, 2D 151 ml AV VTI 14.74 cm LVESV, 2D 27 ml AV PGmax 3 mmHg Left Atrium AV PGmean 2 mmHg Label Value Normal Value EVERETTE (Vmax) 3.2 cm-sq LA Volume Index 38 ml/m-sq AV Vmax, Caliper 81 cm/s Aorta Mitral Valve Label Value Normal Value Label Value Normal Value Ao Asc 41 mm MV E Vmax 64 cm/s MV A Vmax 32 cm/s MV E/E' lateral 8.72 MV E/E' septal 18.31 MV Dec Time 232 ms MV E' septal 0 cm/s MV E' lateral 0.1 cm/s Tricuspid Valve Label Value Louise l Value RA Pressure 8 mmHg Procedure Note Interface, Inc Results No Pull Forward - 01/30/2021 5:20 PM CDT Patient: JORJE BATISTA MR#: [id number] Exam Date: 01/30/2021 Transthoracic Echocardiogram [facility] [address] [place] [address] BP: HR: : 1950 Exa m Location: Height: 69.00 "(175.3 cm) Age: 70 year(s) Pat ient Room: [facility] Weight: 219 lbs.(99.34 kg) Gender: Male Pat ient Status: Inpatient BSA: 2.15 m2 Editor Continuity And Script: BILLIE LONGO RDCS Reading Physician: ADELINA VERA MD Ordering Physician: COY HARTMAN CNP Procedure Indication(s): Post S SARAH Examination: TTE Co mplete 2D(m-mode), Complete Spectral Doppler, Color Doppler Conclusions Left Ventricle: Markedly reduced left ventricular systol ic function. The ejection fraction is visually estimated to be 25 %. Grade 2 left ventricular diastolic dysfunction. A fal se tendon is present. Right Ventricle: Normal right ventricular systolic functi on. IVC: Dilated IVC with normal respirophasic ch anges. Pericardium: No significant pericardial effusion. No functionally significant valvular abnormalities. Comparison Study Comparison Date: 03/14/2015 Comparison Study: Transthoracic Echocard iogram New RWMA's noted on today's exam, LV ove rall function has decreased from 55% Findings Left Ventricle: Normal left ventricular size. Normal lef t ventricular wall thickness. Markedly reduced left ventricular systolic function. The ejection fraction is visually estimated to be 25 %. There is global hypokinesis with sparing of the basal segments. Grade 2 left ventricular diastolic dysfunction. A fal se tendon is present. Left Atrium: Hzwh-us-ltmyuajcfu dilated left atrium. Aortic Valve: The aortic valve is probably tricuspid. No significant aortic regurgitation. No aortic stenosis. Aorta: There is dilatation of the ascending aor ta measuring 41.0 mm. Mitral Valve: Mild mitral leaflet thickening. Trivial mitral regurgitation. No mitral stenosis. IAS: No evidence of an atrial shunt by color Doppler. Right Ventricle: Normal right ventricular size. Normal ri ght ventricular systolic function. Pulmonary Artery: The tricuspid jet envelope definition is inadequate for estimation of RV systolic pressure. Right Atrium: Dilated right atrium. Tricuspid Valve: Normal tricuspid valve structure. Trivia l tricuspid regurgitation. Pulmonic Valve: Pulmonary valve not well visualized. IVC: Dilated IVC with normal respirophasic ch anges. Pericardium: No significant pericardial effusion. No functionally significant valvular abn ormalities.No pleural effusion. Measurements Left Ventricle Aortic Valve Label Value Norm al Value Label Value Normal Value LVDd, 2D 55.6 mm LVOT Vmax 68 cm/s LVDs, 2D 26.9 mm AV Vmax 81 cm/s IVSd, 2D 10.7 mm LVOTd 22 mm LVPWd, 2D 9.9 mm LVOT VTI 10.42 cm FS, 2D 52 % LVOT PGmax 2 mmHg LVEF, 2D 82 % AV Vmean 59 cm/s LVEDV, 2D 151 ml AV VTI 14.74 cm LVESV, 2D 27 ml AV PGmax 3 mmHg Left Atrium AV PGmean 2 mmHg Label Value Norm al Value EVERETTE (Vmax) 3.2 cm-sq LA Volume Index 38 ml/m-sq AV Vmax, Caliper 81 cm/s Aorta Mitral Valve Label Value Norm al Value Label Value Normal Value Ao Asc 41 mm MV E Vmax 64 cm/s MV A Vmax 32 cm/s MV E/E' lateral 8.72 MV E/E' septal 18.31 MV Dec Time 232 ms MV E' septal 0 cm/s MV E' lateral 0.1 cm/s Tricuspid Valve Label Value Norm al Value RA Pressure 8 mmHg Performing Organization Address [facility] Phone Number [facility] [place], [place] PTT (01/30/2021 4:14 PM CDT) Pathologist Sig nature APTT >150 (HH) 24 - [address] Specimen Blood - Blood specimen (specimen) Performing Organization Address [facility] Phone Number [address] [place] [address] PTT (01/30/2021 3:19 PM CDT) Pathologist Sig nature APTT >150 (HH) 24 - [address] Specimen Blood - Blood specimen (specimen) Performing Organization Address [facility] Phone Number [address] [place] [phone] LIPID PANEL (01/30/2021 2:38 PM CDT) Pathologist Sig nature Cholesterol 243 (H) 100 - 200 mg/dL [facility] Triglyceride 56 50 - 150 mg/dL [facility] HDL 63 40 - 80 mg/dL [facility] LDL 169 (H) 0 - 129 mg/dL [facility] Specimen Blood - Blood specimen (specimen) Performing Organization Address [facility] Phone Number [facility] [address] [place] [address] [phone] PTT (01/30/2021 2:38 PM CDT) Pathologist Sig nature APTT >150 (HH) 24 - [address] Specimen Blood - Blood specimen (specimen) Performing Organization Address [facility] Phone Number [place] [address] [address], [place] [address] HEPATIC FUNCTION PANEL (01/30/2021 2:38 PM CDT) Pathologist Sig nature Alkaline Phosphatase 73 30 - 150 U/L [address] AST - SGOT 133 (H) 0 - 35 U/L [address] ALT - SGPT 40 0 - 55 U/L [address] Bilirubin Total 0.7 0.2 - 1.2 mg/dL [address] Bilirubin Indirect 0.5 0.0 - 0.8 mg/dL [address] Bilirubin Direct 0.2 0.0 - 0.4 mg/dL [address] Albumin 3.9 3.5 - 5.0 g/dL [address] Protein Total 7.0 6.0 - 8.2 g/dL [address] Specimen Blood - Blood specimen (specimen) Performing Organization Address [facility] Phone Number [address] [place] [phone] ACTIVATED CLOTTING TIME POCT (01/30/2021 12:48 PM CDT) Pathologist Sig nature Activated Clotting 340 (H) 100 - [address] [facility] POINT OF CARE TESTING Specimen Blood - Blood specimen (specimen) Narrative Performed At DEVICE: [id number] [facility] POINT OF CARE TESTING Performing Organization Address [facility] Phone Number [facility] POINT OF [address] [place] [address] CARE TESTING Cardiac Cath Possible Angioplasty Stent Dog Track Kennel Manager - Left (01/30/2021 12:25 PM CDT) Specimen Narrative Performed At This result has an attachment that is no t available. [facility] Patient: JORJE BATISTA [facility] Exam Date: 01/30/[address] Exam Time: 12:25 PM-12:46 PM [facility] [place] [address] Department of Interventional Cardiology Diagnostic Heart Catheterization Report, Cardiac Inter ventional Report : 1950 Fluoro Time: 6.3 min. Patient Status: Inpatient Age: 70 year(s) Cath Status: Patient Room: [facility] Gender: Male Diagnostic Talent Recruiter: ISAURA CERDA MD Medical Equipment Sales: Agnes PABON Indication: Angina/VT: myocardial infarction with ST elevation (STEMI). Interventional Conclusions: Interventional Summary Proximal left anterior descending: A suc cessful Drug Eluting Stent was deployed using a RESOLUTE DANIELLE [id number]. Procedures Performed: Fluoro 0.1-60 Minutes. Medication/Infusi on/Drip. Art Access - R radial artery. Selective Rt Coronary Angiography. Selective Lt Coronary Angiography. Activated Clotting Time. PTCA. Drug Eluting Stent Placement. Radial Artery Compression Device. Diagnostic Findings: Coronary Angiography The coronary circulation is right dominant. Left Main Left main artery: The segment is large. Angiography sh ows no disease. Left Anterior Descending Left anterior descending artery: The seg ment is large. Angiography shows no disease. Proximal left anterior descending: There is a 90 % stenosis. First diagonal : The segment is large. There is a 40 % stenosis in the mid portion of the segment. Circumflex Circumflex artery: The segment is small. Angiography shows no disease. First obtuse marginal: The segment is large. Second obtuse marginal: The segment is l arge. There is a 40 % stenosis in the proximal portion of the segment. Right Coronary Right coronary artery: The segment is la rge. Angiography shows diffuse disease. Left Heart Cath Ejection fraction was not calculated. Interventional Findings: Interventional Details Proximal left anterior descending: The i nitial stenosis was 90 %. This was an ACC/AHA High/C lesion for intervention. Guidewire crossing was successful. A successful Balloon angioplasty was per formed using a CATH GUIDE 6FR LAUNCHER EBU3.5 during setup, a LUGE 0.014 182CM MODERATE SUPPORT during setu p, and a EUPHORA 3.0X15 RX During Procedure. The total number of attempt(s) was 3. Th e maximum inflation pressure was 8(ro). A successful Drug Eluting Stent was depl oyed using a RESOLUTE DANIELLE [id number] During Procedure. The total number of attempt(s) was 1. Th e maximum inflation pressure was 12(ro). A successful Balloon angioplasty was per formed using a EUPHORA 4X10 RX During Procedure. The total number of attempt(s) was 2. Th e maximum inflation pressure was 12(ro). Following intervention there is a 0 % re sidual stenosis. There was MARIA DE JESUS Flow 1 before the procedure and MARIA DE JESUS Flow 3 following the procedure. No significant vessel dissection noted. There was no perforation at the intervention site. The intervened vessel did not close acutely. Procedure Narrative: Access Right radial artery: The puncture site was infiltrated with 1 % Lidocaine. Vascular access was obtained using modified seldinger technique and a GLIDESHEATH SLENDER 6FR [id number] was advanced into the vessel. Hemostasis/Sheath Status: Hemostasis was successful using a(n) RADIAL TR BAND. Coronary Angiography Left Coronary System: A catheter was positioned into the Vesse l Ostium under fluoroscopic guidance. Contrast injections were performed using hand injection. Angiograms were obtain ed in multiple views. Right Coronary System: A catheter was positioned into the Vesse l Ostium under fluoroscopic guidance. Contrast injections were performed using hand injection. Angiograms were obtain ed in multiple views. Hemodynamic Impressions Hemodynamic Findings Pressures: Baseline: AO pressure 145/65mmHg, mean 11 5. Hemodynamic Pressures-Phase: Baseline Location : Ao Pressure s : 145 mmHg Pressure d : 65 mmHg Pressure m : 115 mmHg HR : 95 bpm Flow Calculations, Phase: Baseline VO2: 320.31 ml/min Shunts Acute complication: No complications Contrast: Description Dose Unit HIS No. Reference No. Serial No. Lot No. Omnipaque 125. 000 ml C34 C34 X-Ray: Exam total DAP: 3821.90 cGycm- sq Air Kerma/Exam Total Dose: 530 mGy Ordering Physician: ISAURA CERDA MD CCL Manager Of Warehouse: ALBERTO BREWSTER RN Scrub: DAVIS GARCES Monitor: SANGEETA HODGSON RN Monitor: SUZANNA SEYMOUR Customer Account Representative: RT YANIRA(R) Primary Talent Recruiter: MARKO BRANTLEY MD Diagnostic Physician Signature: Electronically signed by ISAURA CERDA MD on 11/2020 at 01:40 PM (No Signature Object) Interventional Physician Signature: Electronically signed by ISAURA CERDA MD on 11/2020 at 01:40 PM (No Signature Object) Pre - Post - Procedure Note Interface, Inc Results No Pull Forward - 01/30/2021 1:43 PM CDT Patient: JORJE BATISTA [facility] Exam Date: 01/30/[address] Exam T kanu: 12:25 PM-12:[place] [address] [facility] of Interventional Cardiology Diagnostic Heart Catheterization Report, Cardiac Interventional Report : 1950 Fluoro Time: 6.3 min. Patient Status: Inpatient Age: 70 year(s) Cath Status: Patient Room: [facility] Gender: Male Diagnostic Talent Recruiter: ISAURA YOUNG MD Medical Equipment Sales: ISAURA YOUNG MD Indication: Angina/VT: myocardial infar ction with ST elevation (STEMI). Interventional Conclusions: Interventional Summary Proximal left anterior descending: A suc cessful Drug Eluting Stent was deployed using a RESOLUTE DANIELLE [id number]. Procedures Performed: Fluoro 0.1-60 Minutes. Medication/Infusi on/Drip. Art Access - R radial artery. Selective Rt Coronary Angiography. Selective Lt Coronary Angiography. Activated Clotting Time. PTCA. Drug Eluting Stent Placement. Radial Artery Compression Device. Diagnostic Findings: Coronary Angiography The coronary circulation is right domina nt. Left Main Left main artery: The segment is large. Angiography shows no disease. Left Anterior Descending Left anterior descending artery: The seg ment is large. Angiography shows no disease. Proximal left anterior descending: There is a 90 % stenosis. First diagonal : The segment is large. There is a 40 % stenosis in the mid portion of the segment. Circumflex Circumflex artery: The segment is small. Angiography shows no disease. First obtuse marginal: The segment is large. Second obtuse marginal: The segment is l arge. There is a 40 % stenosis in the proximal portion of the segment. Right Coronary Right coronary artery: The segment is la rge. Angiography shows diffuse disease. Left Heart Cath Ejection fraction was not calculated. Interventional Findings: Interventional Details Proximal left anterior descending: The i nitial stenosis was 90 %. This was an ACC/AHA High/C lesion for intervention. Guidewire crossing was successful. A successful Balloon angioplasty was per formed using a CATH GUIDE 6FR LAUNCHER EBU3.5 during setup, a LUGE 0.014 182CM MODERATE SUPPORT during setu p, and a EUPHORA 3.0X15 RX During Procedure. The total number of attempt(s) was 3. Th e maximum inflation pressure was 8(ro). A successful Drug Eluting Stent was depl oyed using a RESOLUTE DANIELLE [id number] During Procedure. The total number of attempt(s) was 1. Th e maximum inflation pressure was 12(ro). A successful Balloon angioplasty was per formed using a EUPHORA 4X10 RX During Procedure. The total number of attempt(s) was 2. Th e maximum inflation pressure was 12(ro). Following intervention there is a 0 % re sidual stenosis. There was MARIA DE JESUS Flow 1 before the procedure and MARIA DE JESUS Flow 3 following the procedure. No significant vessel dissection noted. There was no perforation at the intervention site. The intervened vessel did not close acutely. Procedure Narrative: Access Right radial artery: The puncture site was infiltrated with 1 % Lidocaine. Vascular access was obtained using modified seldinger technique and a GLIDESHEATH SLENDER 6FR [id number] was advanced into the vessel. Hemostasis/Sheath Status: Hemostasis was successful using a(n) RADIAL TR BAND. Coronary Angiography Left Coronary System: A catheter was positioned into the Vesse l Ostium under fluoroscopic guidance. Contrast injections were performed using hand injection. Angiogra ms were obtained in multiple views. Right Coronary System: A catheter was positioned into the Vesse l Ostium under fluoroscopic guidance. Contrast injections were performed using hand injection. Angiogra ms were obtained in multiple views. Hemodynamic Impressions Hemodynamic Findings Pressures: Baseline: AO pressure 145/65 mmHg, mean 115. Hemodynamic Pressures-Phase: Baseline Location : Ao Pressure s : 145 mmHg Pressure d : 65 mmHg Pressure m : 115 mmHg HR : 95 bpm Flow Calculations, Phase: Baseline VO2: 320.31 ml/min Shunts Acute complication: No complicati ons Contrast: Description Dose Un it HIS No. Reference No. Serial No. Lot No. Omnipaque 125.000 ml C34 C34 X-Ray: Exam total DAP: 3821.90 cGycm-sq Air Kerma/Exam Total Dose: 530 mGy Ordering Physician: ISAURA RAZA MD CCL Manager Of Warehouse: Jakob OWENS Scrub: DAVIS GARCES Monitor: SANGEETA HODGSON RN Monitor: SUZANNA SEYMOUR Customer Account Representative: SHERRY TARIQ RT(R) Primary Talent Recruiter: MARKO Guerrero MD Diagnostic Physician Signature: (No Signature Object) Interventional Physician Signature: (No Signature Object) Pre - Post - Performing Organization Address City/State/Zipcode Phone Number [facility] [place], [place] documented in this encounter Visit Diagnoses Diagnosis Stented coronary artery - Primary Postsurgical percutaneous transluminal c oronary angioplasty status ST elevation myocardial infarction invol ving left anterior descending (LAD) coronary artery ([facility]) Acute systolic CHF (congestive heart vick lure) ([facility]) Acute systolic heart failure ST elevation VT (STEMI) ([facility]) Acute myocardial infarction, unspecified site, episode of care unspecified STEMI (ST elevation myocardial infarctio n) ([facility]) Acute myocardial infarction, unspecified site, episode of care unspecified Smoker Tobacco use disorder Atrial fibrillation with tachycardic natalee tricular rate ([facility]) documented in this encounter Discharge Diagnoses Not on filedocumented in this encounter Administered Medications Medication Order MAR Action Action Date Dose Rate Site acetaminophen (TYLENOL) tablet Given 01/30/2021 8:29 PM CDT 650 mg 650 mg 650 mg, Oral, Every four hours prn, Starting Sat01/30/21 at 1323, Until Discontinued, mild pain, pain scale 3 or less, Post-Procedure (Cath), Adult patients: Total dose of acetaminophen from all acetaminophen containing products should not exceed 4 grams (4000 mg) per day. Pediatric Patients 0 - 3 months: Maximum of 60 mg/kg/24 hours of acetaminophen. Pediatric Patients older than 3 months: Maximum of 75 mg/kg/24 hours of acetaminophen (Never exceeding 4 grams/day). , albuterol (PROVENTIL) (2.5 mg/3mL) 0.083% Given 01/31/2021 4:00 AM CDT 2.5 mg inhalation soln 2.5 mg 2.5 mg, Nebulization, Every four hours prn, Starting Sat01/30/21 at 1725, Until Discontinued, shortness of breath, wheezing, 3 mL, Formulary Substitute for albuterol inhaler., amiodarone (CORDARONE, PACERONE) tablet 200 mg 200 mg, Oral, Daily, First dose on Sat02/15/21 at 0900 , Until Discontinued amiodarone (CORDARONE, PACERONE) tablet 400 Given 02/2021 9:02 AM CDT 400 mg mg 400 mg, Oral, Daily, 14 doses, First dose on Sat02/01/21 at 1100, Last dose on Sat02/14/21 at 0900 Given 02/01/2021 11:28 AM CDT 400 mg apixaban (ELIQUIS) tablet 5 mg Given 02/02/2021 9:02 AM CDT 5 mg 5 mg, Oral, Two times a day, First dose on Sat02/01/21 at 1100, Until Discontinued Given 02/01/2021 8:18 PM CDT 5 mg Given 02/01/2021 11:28 AM CDT 5 mg aspirin enteric coated tablet 81 mg Given 02/02/2021 9:01 AM CDT 81 mg 81 mg, Oral, Daily, First dose on Sat01/31/21 at 0900, Until Discontinued, Post-Procedure (Cath), Tablet should be swallowed whole and not be divided, crushed or chewed., Given 02/01/2021 8:21 AM CDT 81 mg Given 01/31/2021 9:14 AM CDT 81 mg carVEDilol (COREG) tablet 6.25 mg Given 02/02/2021 9:02 AM CDT 6.25 mg 6.25 mg, Oral, Two times a day with meals, First dose (after last modification) on Sat01/31/21 at 1730, Until Discontinued, Take with food., Given 02/01/2021 5:45 PM CDT 6.25 mg Given 02/01/2021 8:21 AM CDT 6.25 mg clopidogrel (PLAVIX) tablet 75 mg Given 02/02/2021 9:02 AM CDT 75 mg 75 mg, Oral, Daily, First dose on Sat02/02/21 at 0900, Until Discontinued gfbdvtvqsdb-drlrnghhlvob-dxrtvkibbt (TRELEGY Given 02/02/2021 8 :56 AM 1 puff ELLIPTA) 100-62.5-25 mcg/Inh inhaler 1 p uff CDT 1 puff, Inhalation, DAILY, First dose (after last reorder) on Sat02/01/21 at 1200, Until Discontinued, Patient s own medication has been identified by Respiratory Therapist and approved for hospital use by hospital policy., Given 02/01/2021 12:00 PM CDT 1 puff hydrALAZINE (APRESOLINE) injection solut ion 10 mg 10 mg, IV, Every six hours prn, Starting Sat01/30/21 at 1248, Until Discontinued, specified parameter, to keep SBP less th an 150 mmHg, 0.5 mL, Repeat in 20 minutes if needed. If not successful after two d oses, contact the interventional cardiology team., hydrOXYzine pamoate (VISTARIL) capsule 2 5 mg 25 mg, Oral, Every six hours prn, Starti ng Sat01/31/21 at 0409, Until Discontinued, anxiety nitroglycerin (NITROSTAT) sublingual tab let 0.4 mg 0.4 mg, Sublingual, Every five minutes prn, Starting M 01/30/21 at 1248, Until Discontinued, chest pain, At onset of ch est pain, dissolve one tablet under tongue. May repeat every 5 minutes for 3 doses. Do not crush o r chew., rosuvastatin (CRESTOR) tablet 40 mg Given 02/02/2021 9:01 AM CDT 40 mg 40 mg, Oral, Daily, First dose on Sat01/31/21 at 0900, Until Discontinued Given 02/01/2021 8:21 AM CDT 40 mg Given 01/31/2021 9:14 AM CDT 40 mg Medication Order MAR Action Action Date Dose Rate Site amiodarone (NEXTERONE) 1.8 New Bag 01/30/2021 2:34 PM 1 mg/min 33.3 mL/hr mg/mL in D5W IV infusion CDT (premix) 1 mg/min (33.3333 mL/hr, rounded to 33.3 mL/hr), IV, at 33.3 mL/hr, Continuous, Starting Sat01/30/21 at 1425, Until 01/30/21 at 2024, 200 mL, INFUSION: Infuse at 1 mg/min x 6 hours. Infuse using a 0.2 or 0.22 micron filter. Check vital signs before and during initiation of infusion, then every 20 mins x 4, then every 1 hr x 4, then every 4 hrs. Check vitals with every rate adjustment (up or down), and at discontinuation of infusion. Central line preferred if available. Acceptable to give peripherally for urgent need and one-time administration. Pursue a central line for continuous use greater than 24 hours., amiodarone (NEXTERONE) 1.8 New Bag 01/31/2021 9:15 AM CDT 0.5 mg/min 16.7 mL/hr mg/mL in D5W IV infusion (premix) 0.5 mg/min (16.6667 mL/hr, rounded to 16.7 mL/hr), IV, at 16.7 mL/hr, Continuous, Starting Sat01/30/21 at 2024, Until Sat01/31/21 at 1000, 200 mL, INFUSION: Infuse at 0.5 mg/min Infuse using a 0.2 or 0.22 micron filter. Check vital signs before and during initiation of infusion, then every 20 mins x 4, then every 1 hr x 4, then every 4 hrs. Check vitals with every rate adjustment (up or down), and at discontinuation of infusion. Central line preferred if available. Acceptable to give peripherally for urgent need and one-time administration. Pursue a central line for continuous use greater than 24 hours., New Bag 01/30/2021 8:31 PM CDT 0.5 mg/min 16.7 mL/hr amiodarone (NEXTERONE) 1.8 New Bag 02/01/2021 10:38 AM CDT 1 mg/mi n 33.3 mL/hr mg/mL in D5W IV infusion (premix) 1 mg/min (33.3333 mL/hr, rounded to 33.3 mL/hr), IV, at 33.3 mL/hr, Continuous, Starting Sat02/01/21 at 0510, Until Sat02/01/21 at 1109, 200 mL, INFUSION: Infuse at 1 mg/min x 6 hours. Infuse using a 0.2 or 0.22 micron filter. Check vital signs before and during initiation of infusion, then every 20 mins x 4, then every 1 hr x 4, then every 4 hrs. Check vitals with every rate adjustment (up or down), and at discontinuation of infusion. Central line preferred if available. Acceptable to give peripherally for urgent need and one-time administration. Pursue a central line for continuous use greater than 24 hours., New Bag 02/01/2021 5:14 AM CDT 1 mg/min 33.3 mL/hr amiodarone (NEXTERONE) 150 mg/100 mL in Given 01/30/2021 2:23 P M CDT 150 mg dextrose IV loading dose (premix) 150 mg, IV, Now, 1 dose, Sat01/30/21 at 1415, 100 mL, BOLUS: Administer over 10 minutes. Infuse using a 0.2 or 0.22 micron filter. Check vitals before, immediately after, and 5 minutes after administration. If possible, run in a dedicated central line. Acceptable to give peripherally for urgent need and one-time administration. Administer over 10 minutes., amiodarone (NEXTERONE) 150 mg/100 mL in Given 02/01/2021 4:56 A M CDT 150 mg dextrose IV loading dose (premix) 150 mg, IV, Now, 1 dose, Sat02/01/21 at 0500, 100 mL, BOLUS: Administer over 10 minutes. Infuse using a 0.2 or 0.22 micron filter. Check vitals before, immediately after, and 5 minutes after administration. If possible, run in a dedicated central line. Acceptable to give peripherally for urgent need and one-time administration. Administer over 10 minutes., carVEDilol (COREG) tablet 3.125 mg Given 01/31/2021 9:14 AM CDT 3.125 mg 3.125 mg, Oral, Two times a day with meals, First dose on Sat01/30/21 at 1730, Until Discontinued, Take with food., Given 01/30/2021 5:37 PM CDT 3.125 mg clopidogrel (PLAVIX) tablet 300 mg Given 01/31/2021 9:14 AM CDT 300 mg 300 mg, Oral, One time, 1 dose, Sat01/31/21 at 0900 clopidogrel (PLAVIX) tablet 300 mg Given 02/01/2021 11:29 AM CDT 300 mg 300 mg, Oral, Now, 1 dose, Sat02/01/21 at 1100 dilTIAZem (CARDIZEM) IV solution 10 mg Given 01/30/2021 12:34 PM CDT 10 mg 10 mg, IV, One time, 1 dose, Sat01/30/21 at 1335, 5 mL, Give IV bolus over 2 minutes., fentaNYL 100 mcg/2 mL preservative free Given 01/30/2021 12:20 P M CDT 50 mcg injection solution 12.5-300 mcg 12.5-300 mcg, IV, Administer in Cardiac Dog [employer], 1 dose, Sat01/30/21 at 1225, 6 mL, Under the direction of the provider in CCL. Do not give on the floor. For cardiac catheterization sedation under direction provider privileged to perform sedation., furosemide (LASIX) injection solution 40 mg Given 01/31/2021 4:14 AM CDT 40 mg 40 mg, IV, One time, 1 dose, Sat01/31/21 at 0510, 4 mL, If preference is to further dilute for IV administration: First draw up patient-specific dose, then dilute to 10 mL with 0.9% sodium chloride. Administer SLOW IV push., hEParin (50 units/mL) in Rate Verify 01/31/2021 7:54 AM 12 Units/ kg/hr 23.9 mL/hr D5W premixed IV solution CDT (STANDARD-weight based) 0-50 Units/kg/hr 99.4 kg (0-99.4 mL/hr), IV, at 0-99.4 mL/hr, Titrate, Starting Sat01/30/21 at 1520, Until Sat01/31/21 at 0955, 500 mL, Start initial infusion at 15 units/kg/hr. Notify physician if initial infusion exceeds 1,500 units/hr. Adjust heparin infusion based on sliding scale: * aPTT less than 60 sec ------ Give 70 units/kg IV bolus and add 4 units/kg/hr to current rate * aPTT 60-69.9 sec Give 35 units/kg IV bolus and add 2 units/kg/hr to current rate * aPTT 70-120.9 sec No change (therapeutic) * aPTT 121-135.9 sec Subtract 2 units/kg/hr from current rate * aPTT 136-149.9 sec --------- Hold heparin for 1 hour and subtract 3 units/kg/hr from current rate * aPTT 150 sec or greater - Redraw STAT aPTT and hold heparin. Draw hourly aPTT using routine specified time until less than 150 sec, then restart heparin infusion at 3 units/kg/hr less than the previous rate, give NO BOLUS and resume every 6 hour aPTT. AFTER PROCEDURE: When restarting infusion after it's been held for a procedure, restart infusion at "starting" dose of 15 units/kg/hr and follow titration orders. IF infusion was running at less than 15 units/kg/hr prior to procedure, restart at that rate and follow titration orders., Rate Verify 01/31/2021 2:48 AM CDT 12 Units/kg/hr 23.9 mL/hr New Bag 01/30/2021 5:55 PM CDT 12 Units/kg/hr 23.9 mL/hr heparin (porcine) injection solution Given 01/30/2021 12:24 PM C DT 7,000 Units 0-12,000 Units 0-12,000 Units, IV, Administer in Cardiac Dog Track [employer]el Manager, 1 dose, Sat01/30/21 at 1225, 12 mL, Under the direction of the provider in CCL. Do not give on the floor., iohexol (OMNIPAQUE) 350 mg/mL solution 125 Given 01/30/2021 12:49 PM CDT 125 mL mL 125 mL, Intra-arterial, One time, 1 dose, Sat01/30/21 at 1250, 150 mL lidocaine PF (XYLOCAINE-MPF) 1 % preservative Given 12:21 PM CDT 2 mL free injection solution 0-40 mL 0-40 mL, Subcutaneous, Administer in Cardiac Dog [employer]el Manager, 1 dose, Sat01/30/21 at 1225, 40 mL, Given by provider in CCL. Do not give on the floor., midazolam (VERSED) injection solution 0.5-10 Given 12:21 PM CDT 2 mg mg 0.5-10 mg, IV, Administer in Cardiac Dog [employer]el Manager, 1 dose, Sat01/30/21 at 1225, 10 mL, For cardiac catheterization sedation under direction provider privileged to perform sedation. Do not give on the floor., ticagrelor (BRILINTA) tablet 90 mg Given 01/30/2021 8:29 PM CDT 90 mg 90 mg, Oral, Two times a day, 1 dose, First dose on Sat01/30/21 at 2100, Post-Procedure (Cath), If medication is crushed, must be mixed with water for administration., ticagrelor (BRILINTA) tablet 90 mg Given 02/01/2021 8:21 AM CDT 90 mg 90 mg, Oral, Two times a day, First dose on Sat01/31/21 at 1000, Until Discontinued, If medication is crushed, must be mixed with water for administration., Given 01/31/2021 8:43 PM CDT 90 mg Given 01/31/2021 12:12 PM CDT 90 mg verapamil-hEParin in normal saline (radial Given 01/30/2021 12:2 1 PM CDT cocktail) Intra-arterial, Administer in Cardiac Dog [employer]el Manager, 1 dose, Sat01/30/21 at 1225, 10 mL, Under the direction of the provider in CCL. Do not give on the floor., documented in this encounter
== END 2021-01-30 11:16 | disposition short-term general hospital (02) ==
LOC: VM.ED 10:56
DX: I21.3 ST elevation (STEMI) myocardial infarction of unspecified site (principal); I10 Essential (primary) hypertension
CPT/HCPCS: 80053; 82550; 83735; 84484; 85025; 85379; 85610; 85730; 93005; 93010; 96374; 96375; 99284; 99285-25; A9270-GY; J1644; J2270; J3490

== ENCOUNTER 2021-10-17 13:51 | Emergency (ER) | payer OTHER ==
[2021-10-17 15:03] LABS: ANION GAP 12.3 mmol/L (5-15); CHLORIDE,CL 104 mmol/L (98-107); SODIUM,NA 140 mmol/L (136-145)
[2021-10-17 15:29] LABS: PTT,PARTIAL THROMBOPLSTIN TIME 29.2 SEC (25.6-32.8)
[2021-10-17] MEDS: Lactated Ringers 1,000 ML IV ONE (15:35)
[2021-10-17] MEDS: Iopamidol 612 MG/ML 100 ML Bottle IVPUSH ONE (15:52)
== END 2021-10-17 16:44 | disposition home or self-care (01) ==
LOC: VM.ED 13:51
DX: T81.40XA Infection following a procedure, unspecified, initial encounter (principal); I72.3 Aneurysm of iliac artery; I10 Essential (primary) hypertension; I25.2 Old myocardial infarction; I48.91 Unspecified atrial fibrillation; E78.00 Pure hypercholesterolemia, unspecified; Z95.1 Presence of aortocoronary bypass graft; Z87.891 Personal history of nicotine dependence; Z79.01 Long term (current) use of anticoagulants; Z79.02 Long term (current) use of antithrombotics/antiplatelets; Z79.899 Other long term (current) drug therapy
CPT/HCPCS: 36415; 73701; 80053; 81003; 83605; 84145; 85025; 85610; 85730; 86140; 87040; 99284; J7120; Q9967

== ENCOUNTER 2022-03-21 14:04 | Emergency (ER) | payer OTHER | END 2022-03-21 14:31 | disposition home or self-care (01) | LOC: VM.ED 14:04 | DX: S01.81XA Laceration without foreign body of other part of head, initial encounter (principal); E78.00 Pure hypercholesterolemia, unspecified; I10 Essential (primary) hypertension; Z95.1 Presence of aortocoronary bypass graft; Z79.01 Long term (current) use of anticoagulants; Z79.02 Long term (current) use of antithrombotics/antiplatelets; Z79.899 Other long term (current) drug therapy; W26.8XXA Contact with other sharp object(s), not elsewhere classified, initial encounter; Y99.0 Civilian activity done for income or pay | CPT/HCPCS: 12011; 99282-25; 99283 ==

== ENCOUNTER 2024-05-14 07:39 | Emergency (ER) | payer BC ==
[2024-05-14 08:29] LABS: BASOPHILS PERCENT AUTO 0.5 % (0.2-1.2); EOSINOPHILS ABSOLUTE AUTO 0.1 x10^3/uL (0.0-0.5); EOSINOPHILS PERCENT AUTO 1.5 % (0.0-4.0); HEMATOCRIT 43.8 % (40.0-52.0); HEMOGLOBIN 14.4 g/dL (14.0-18.0); IMMATURE GRAN ABSOLUTE AUTO 0.02 x10^3/uL (0.00-0.07); LYMPHOCYTES ABSOLUTE AUTO 1.2 x10^3/uL (1.0-4.8); LYMPHOCYTES PERCENT AUTO 17.6 % (25.0-50.0); MEAN CORPUSCULAR HEMOGLOBIN 31.9 pg (26.0-32.0); MEAN CORPUSCULAR HGB CONC 32.9 g/dL (32.0-36.0); MEAN CORPUSCULAR VOLUME 97.1 fL (78.0-93.0); MONOCYTES ABSOLUTE AUTO 0.8 x10^3/uL (0.0-0.8); MONOCYTES PERCENT AUTO 11.9 % (2.0-11.0); NEUTROPHILS ABSOLUTE AUTO 4.5 x10^3/uL (1.8-7.7); NEUTROPHILS PERCENT AUTO 68.2 % (50.0-80.0); PLATELET COUNT,PLT 180 x10^3/uL (130-400); RED BLOOD CELL COUNT 4.51 x10^6/uL (4.5-6.0); WHITE BLOOD CELL COUNT,WBC 6.5 x10^3/uL (4.0-10.0)
[2024-05-14 08:50] LABS: A/G RATIO 0.89; ALANINE AMINOTRANSFERASE,ALT 22 U/L (16-63); ALBUMIN 3.4 g/dL (3.4-5.0); ALKALINE PHOSPHATASE 95 U/L (46-116); ASPARTATE AMNIOTRANSFERASE,AST 24 U/L (15-37); BILIRUBIN TOTAL 0.5 mg/dL (0.2-1.0); BLOOD UREA NITROGEN,BUN 24 mg/dL (7-18); CARBON DIOXIDE,CO2 33 mmol/L (21-32); CHLORIDE,CL 100 mmol/L (98-107); CREATININE 1.6 mg/dL (0.70-1.30); GLUCOSE RANDOM 123 mg/dL (70-99); POTASSIUM,K 4.6 mmol/L (3.5-5.1); PROTEIN TOTAL,TP 7.2 g/dL (6.4-8.2); SODIUM,NA 139 mmol/L (136-145)
[2024-05-14 08:51] LABS: ANION GAP 10.6 mmol/L (5-15); ESTIMATED GFR 44 mL/min (>=60)
== END 2024-05-14 09:33 | disposition home or self-care (01) ==
LOC: VM.ED 07:39
DX: I48.0 Paroxysmal atrial fibrillation (principal); I10 Essential (primary) hypertension; I25.2 Old myocardial infarction; Z79.899 Other long term (current) drug therapy; Z79.01 Long term (current) use of anticoagulants
CPT/HCPCS: 36415; 80053; 84484; 85025; 93005; 99285